=== PATIENT | female | born 1950 | race Hispanic/Latino ===

== ENCOUNTER 2019-12-19 03:11 | Inpatient (IN) | payer MEDICARE ==
--- NOTE | 2019-12-19 04:14 | XRay Report ---
CHEST 1 VIEW 12/19/2019 3:47 AM INDICATION / CLINICAL INFORMATION: SOB. COMPARISON: None available. FINDINGS: SUPPORT DEVICES: None. HEART / MEDIASTINUM: Cardiac silhouette is markedly enlarged. LUNGS / PLEURA: Mild interstitial prominence. No pneumothorax. ADDITIONAL FINDINGS: No significant additional findings. IMPRESSION: 1. Mild CHF Signer Name: Roberto Meza MD Signed: 12/19/2019 4:09 AM Workstation Name: [id number]
[2019-12-19 04:17] LABS: Basophils % (Auto) 0.6 % (0.0-1.8); Eosinophils # (Auto) 0.1 K/mm3 (0.0-0.4); Eosinophils % (Auto) 0.8 % (0.0-4.3); Hematocrit 32.9 % (30.3-42.9); Hemoglobin 10.4 gm/dl (10.1-14.3); Lymphocytes # (Auto) 1.7 K/mm3 (1.2-5.4); Lymphocytes % (Auto) 22.6 % (13.4-35.0); Mean Corpuscular HGB Conc 32 % (30-34); Mean Corpuscular Volume 86 fl (79-97); Platelet Count 175 K/mm3 (140-440)
[2019-12-19 04:28] LABS: INR 2.04 (0.87-1.13)
[2019-12-19 04:29] LABS: Partial Thromboplastin Time 32.9 Sec. (24.2-36.6)
[2019-12-19] MEDS ORDERED: dilTIAZem 25 MG/5 ML INJ IV ONE ×2 (04:37→05:36)
[2019-12-19] MEDS ORDERED: dilTIAZem 25 MG/5 ML INJ ONE (04:37)
[2019-12-19 04:40] LABS: Albumin 3.5 g/dL (3.9-5)
[2019-12-19] MEDS ORDERED: POTASSIUM CHLORIDE ER 20 MEQ TAB PO ONE (05:35)
--- NOTE | 2019-12-19 06:11 | Emergency Department Report ---
HPI - General Chief Complaint: Dyspnea/Respdistress Time Seen by Provider: 12/19/19 03:23 - HPI HPI: This is a 69-year-old female who presents to the emergency department via EMS from home with a complaint of a one-week history of progressively worsening shortness of breath and lower extremity swelling. The patient has a history of congestive heart failure, COPD, coronary artery disease, hypertension and atrial fibrillation. The patient says that she has been doubling up on her Lasix and taking a total of 160 mg/day but still is having the edema and some orthopnea. Patient's primary care physician and monomer recovery supervisor are through [facility]. She denies any fever, cough, chest pain but does complain of some nausea with vomiting. No recent travel or sick contacts at home. No known exposure to anyone with Covid 19. ED Past Medical Hx - Past Medical History Previous Medical History?: Yes Hx Hypertension: Yes Hx Heart Attack/AMI: Yes (EF 15%) Hx Congestive Heart Failure: Yes Hx Renal Disease: Yes Hx COPD: Yes Additional medical history: A-fib, Bipap - Surgical History Past Surgical History?: Yes Additional Surgical History: Tubal Ligation - Social History Smoking Status: Never Smoker Substance Use Type: None - Medications Home Medications: Home Medications Medication Instructions Recorded Confirmed Last Taken Type AtorvaSTATin 40 mg PO DAILY 12/19/19 12/19/19 Unknown History Eliquis 5 mg PO BID 12/19/19 12/19/19 Unknown History Esomeprazole Magnesium 20 mg PO QAM 12/19/19 12/19/19 Unknown History Furosemide 80 mg PO BID 12/19/19 12/19/19 Unknown History Potassium 20 meq PO DAILY 12/19/19 12/19/19 Unknown History ED Review of Systems ROS: Stated complaint: URBAN Other details as noted in HPI Comment: All other systems reviewed and negative Constitutional: denies: chills, fever Eyes: denies: eye pain, vision change ENT: denies: ear pain, throat pain Respiratory: orthopnea, shortness of breath, SOB with exertion Cardiovascular: edema. denies: chest pain Gastrointestinal: nausea, vomiting. denies: abdominal pain Genitourinary: denies: dysuria, discharge Musculoskeletal: denies: back pain, arthralgia Skin: denies: rash, lesions Neurological: denies: headache, weakness Physical Exam - Physical Exam Vital Signs: Vital Signs 12/19/19 12/19/19 12/19/19 03:21 03:30 03:46 Temperature Pulse Rate 143 H 134 H 144 H Respiratory 32 H 29 H 22 Rate Blood Pressure 111/81 111/81 106/69 O2 Sat by Pulse 97 98 98 Oximetry 12/19/19 12/19/19 12/19/19 03:50 04:11 04:16 Temperature 98 F Pulse Rate 136 H 147 H 143 H Respiratory 26 H 22 25 H Rate Blood Pressure 106/69 104/74 O2 Sat by Pulse 99 98 97 Oximetry 12/19/19 12/19/19 12/19/19 04:30 04:46 05:00 Temperature Pulse Rate 144 H 138 H 121 H Respiratory 22 18 18 Rate Blood Pressure 105/81 102/67 114/72 O2 Sat by Pulse 96 96 Oximetry 12/19/19 12/19/19 12/19/19 05:16 05:30 05:55 Temperature Pulse Rate 136 H 129 H 136 H Respiratory 21 22 Rate Blood Pressure 97/72 102/73 105/76 O2 Sat by Pulse 96 100 Oximetry Physical Exam: GENERAL: The patient is well-developed well-nourished. HENT: Normocephalic. Atraumatic. Patient has moist mucous membranes. EYES: Extraocular motions are intact. NECK: Supple. Trachea is midline. CHEST/LUNGS: Coarse breath sounds throughout the chest. There is some tachypnea but no accessory muscle use. HEART/CARDIOVASCULAR: Irregular with moderate tachycardia. ABDOMEN: Abdomen is soft, nontender. Patient has normal bowel sounds. Obese habitus. SKIN: Skin is warm and dry. 2+ pitting edema to the bilateral lower extremities from the knees distally. NEURO: The patient is awake, alert, and oriented. The patient is cooperative. The patient has no focal neurologic deficits. Normal speech. MUSCULOSKELETAL: There is no tenderness or deformity. ED Course Vital Signs 12/19/19 12/19/19 12/19/19 03:21 03:30 03:46 Temperature Pulse Rate 143 H 134 H 144 H Respiratory 32 H 29 H 22 Rate Blood Pressure 111/81 111/81 106/69 O2 Sat by Pulse 97 98 98 Oximetry 12/19/19 12/19/19 12/19/19 03:50 04:11 04:16 Temperature 98 F Pulse Rate 136 H 147 H 143 H Respiratory 26 H 22 25 H Rate Blood Pressure 106/69 104/74 O2 Sat by Pulse 99 98 97 Oximetry 12/19/19 12/19/19 12/19/19 04:30 04:46 05:00 Temperature Pulse Rate 144 H 138 H 121 H Respiratory 22 18 18 Rate Blood Pressure 105/81 102/67 114/72 O2 Sat by Pulse 96 96 Oximetry 12/19/19 12/19/19 12/19/19 05:16 05:30 05:55 Temperature Pulse Rate 136 H 129 H 136 H Respiratory 21 22 Rate Blood Pressure 97/72 102/73 105/76 O2 Sat by Pulse 96 100 Oximetry ED Medical Decision Making - Lab Data Result diagrams: 12/19/19 03:48 12/19/19 03:48 - EKG Data -: EKG Interpreted by Me - EKG Data Interpretation: other (Atrial fibrillation with a rate of 137 bpm, prolonged QTC, left axis deviation, IVCD) - Radiology Data Radiology results: image reviewed interpreted by me: Chest x-ray shows some pulmonary vascular congestion and cardiomegaly. No obvious pneumonia. - Medical Decision Making This patient presents to the emergency department with a one-week history of shortness of breath, lower extremity edema. The patient does have a history of CHF, COPD, atrial fibrillation, given this current pandemic the patient was placed and patient isolation and on droplet precautions as a person under investigation for Covid 19. I wore a surgical hat, goggles, gown, double gloves, surgical mask and N95 mask with each encounter. Patient does present in atrial fibrillation with RVR. On examination she has slightly coarse breath sounds with some tachypnea but no accessory muscle use. She has pitting edema to the bilateral lower extremities. Chest x-ray shows some pulmonary vascular congestion and cardiomegaly but no obvious pneumonia. Patient has been given 2 different doses of Cardizem with some improvement in the tachycardia but she remains in atrial fibrillation. Patient's labs show renal failure with a creatinine of 1.5 and a GFR of 34, elevated inflammatory markers such as d- dimer/CRP/LDH, transaminitis and an elevated bilirubin level. The patient will be admitted to the hospital for further evaluation and treatment and was accepted for admission by the hospitalist, Dr Kwan, who may pass the admission to the AM hospitalist team. Critical Care Time: Yes Critical care time in (mins) excluding proc time.: 35 Critical care attestation.: If time is entered above; I have spent that time in minutes in the direct care of this critically ill patient, excluding procedure time. Critical care time was spent on this patient in doing her initial evaluation, multiple re- evaluations, ordering and interpretation of labs and imaging, chronotropic medication for the patient's A. fib with RVR, multiple discussions with the patient and discussion with hospitalist service. Critical Care Time: 35 minutes ED Disposition Clinical Impression: Atrial fibrillation with RVR, Suspected 2019 novel coronavirus infection, Transaminitis CHF exacerbation Qualifiers: Heart failure type: unspecified Qualified Code(s): I50.9 - Heart failure, unspecified Acute renal failure Qualifiers: Acute renal failure type: unspecified Qualified Code(s): N17.9 - Acute kidney failure, unspecified Disposition: 09 OP ADMIT IP TO THIS HOSP Is pt being admited?: Yes Condition: Serious Time of Disposition: 06:14
--- NOTE | 2019-12-19 11:16 | History and Physical Report ---
History of Present Illness Date of examination: 12/19/19 Date of admission: 12/19/19 06:14 Chief complaint: atrial fib History of present illness: This is a 69-year-old female with a history of congestive heart failure, COPD, coronary artery disease, hypertension and atrial fibrillation who presents to the emergency department via EMS from home with a complaint of a one-week history of progressively worsening shortness of breath and extensive lower extremity swelling. Patient was recently discharged from the [facility] about less than 2 weeks ago. the patient says that she has been doubling up on her Lasix and taking a total of 160 mg/day but still is having the leg edema and some orthopnea. She denies any fever, cough, chest pain but does complain of some nausea with vomiting. No recent travel or sick contacts at home. In the ER her BMP showed potassium 3.1, creatinine 1.5, BNP 5175 and troponin 0 0.017. Patient has been placed on COVID-19 protocol, given one-time dose of Lasix and call for admission for further evaluation management. Past Medical Hx - Past Medical History Previous Medical History?: Yes Hx Hypertension: Yes Hx Congestive Heart Failure: Yes (grade 3 diastolic dysfunction with EF 15% on 10/2019) Hx Renal Disease: Yes, CKD Hx COPD: Yes Additional medical history: A-fib, obstructive sleep apnea on CPAP - Surgical History Past Surgical History?: Yes Additional Surgical History: Tubal Ligation - Social History Smoking Status: Never Smoker Substance Use Type: None - Family history Significant for heart disease Review of Systems Comment: All other systems reviewed and negative Constitutional: denies: chills, fever Eyes: denies: eye pain, vision change ENT: denies: ear pain, throat pain Respiratory: orthopnea, shortness of breath, SOB with exertion Cardiovascular: edema. denies: chest pain Gastrointestinal: nausea, vomiting. denies: abdominal pain Genitourinary: denies: dysuria, discharge Musculoskeletal: denies: back pain, arthralgia Skin: denies: rash, lesions Neurological: denies: headache, weakness Medications and Allergies Allergies Allergy/AdvReac Type Severity Reaction Status Date / Time No Known Allergies Allergy Unverified 12/19/19 03:45 Home Medications Medication Instructions Recorded Confirmed Last Taken Type AtorvaSTATin 40 mg PO DAILY 12/19/19 12/19/19 Unknown History Eliquis 5 mg PO BID 12/19/19 12/19/19 Unknown History Esomeprazole Magnesium 20 mg PO QAM 12/19/19 12/19/19 Unknown History Furosemide 80 mg PO BID 12/19/19 12/19/19 Unknown History Potassium 20 meq PO DAILY 12/19/19 12/19/19 Unknown History Exam - Physical Exam Narrative exam: GENERAL: The patient is well-developed morbidly obese. HENT: Normocephalic. Atraumatic. Patient has moist mucous membranes. Positive JVD EYES: Extraocular motions are intact. NECK: Supple. Trachea is midline. CHEST/LUNGS: Coarse breath sounds throughout the chest. There is some tachypnea but no accessory muscle use. HEART/CARDIOVASCULAR: Irregular with moderate tachycardia. ABDOMEN: Abdomen is soft, nontender. Patient has normal bowel sounds. Obese habitus. SKIN: Skin is warm and dry. 3+ pitting edema to the bilateral lower extremities from the knees distally. NEURO: The patient is awake, alert, and oriented. The patient is cooperative. The patient has no focal neurologic deficits. Normal speech. MUSCULOSKELETAL: There is no tenderness or deformity. - Constitutional Vitals: Temp Pulse Resp BP Pulse Ox 98 F 119 H 27 H 95/62 96 12/19/19 03:50 12/19/19 08:46 12/19/19 08:46 12/19/19 08:46 12/19/19 08:46 HEART Score - HEART Score Troponin: Troponin T 0.017 ng/mL (0.00-0.029) 12/19/19 03:48 Results - Labs CBC & Chem 7: 12/19/19 03:48 12/21/19 04:49 Labs: Abnormal lab results 12/19/19 12/19/19 12/19/19 Range/Units 03:48 03:48 03:48 MCH 27 L (28-32) pg RDW 20.0 H (13.2-15.2) % Whitfield % (Auto) 13.0 H (0.0-7.3) % Whitfield # 1.0 H (0.0-0.8) K/mm3 PT 22.5 H (12.2-14.9) Sec. INR 2.04 H (0.87-1.13) D-Dimer 1849.34 H (0-234) ng/mlDDU Potassium 3.1 L (3.6-5.0) mmol/L Chloride 93.0 L (98-107) mmol/L BUN 23 H (7-17) mg/dL Creatinine 1.5 H (0.7-1.2) mg/dL Glucose 136 H (65-100) mg/dL Total Bilirubin 2.60 H (0.1-1.2) mg/dL AST 166 H (5-40) units/L ALT 252 H (7-56) units/L Lactate Dehydrogenase (91-180) units/L C-Reactive Protein (0.00-1.30) mg/dL NT-Pro-B Natriuret Pep (0-900) pg/mL Albumin 3.5 L (3.9-5) g/dL 12/19/19 Range/Units 03:48 MCH (28-32) pg RDW (13.2-15.2) % Whitfield % (Auto) (0.0-7.3) % Whitfield # (0.0-0.8) K/mm3 PT (12.2-14.9) Sec. INR (0.87-1.13) D-Dimer (0-234) ng/mlDDU Potassium (3.6-5.0) mmol/L Chloride (98-107) mmol/L BUN (7-17) mg/dL Creatinine (0.7-1.2) mg/dL Glucose 143 H (65-100) mg/dL Total Bilirubin (0.1-1.2) mg/dL AST (5-40) units/L ALT (7-56) units/L Lactate Dehydrogenase 334 H (91-180) units/L C-Reactive Protein 4.00 H (0.00-1.30) mg/dL NT-Pro-B Natriuret Pep 5175 H (0-900) pg/mL Albumin (3.9-5) g/dL - Imaging and Cardiology Chest x-ray: report reviewed (Interstitial prominence with CHF) Assessment and Plan Acute on chronic combined systolic and diastolic CHF -EF 15% with grade 3 diastolic dysfunction on echo 10/2019 -- admit to telemetry bed - monitor with serial CE and EKG - will place on Aspirin, statin, and Lasix IV - Consult cardiology - cardiac diet now, daily weights, monitor in's and O's Suspected COVID-19 -Test has ordered, follow inflammatory markers -If positive will consult ID Atrial flutter with RVR -Anticoagulation with Eliquis 5 mg p.o. twice daily -Continue rate control with Toprol-XL and amiodarone -Follow cardiology recommendation Hypertension, continue home meds -Monitor vitals every 8 hour, adjust antihypertensive as needed Obstructive sleep apnea, CPAP at bedtime Hyperlipidemia, continue Lipitor 40 mg daily CKD stage 3 - her baseline Cr 1.4 to 1.5 - cont to monitor bmp hypokalemia, replete and check Mg Morbid obesity, dietary recommendation when clinically stable - provide DVT Px with lovenox
[2019-12-19] MEDS: ACETAMINOPHEN 325 MG TAB PO PRN (16:09)
[2019-12-19] MEDS: FUROSEMIDE 40 MG/4 ML INJ IV SCH (17:59)
[2019-12-19] MEDS ORDERED: NON-FORMULARY EACH (Eliquis 5 MG) PO SCH (22:00)
[2019-12-19] MEDS: AMIODARONE 200 MG TAB PO SCH (22:28)
[2019-12-19] MEDS: METOPROLOL TARTRATE 25 MG TAB PO SCH (22:28)
[2019-12-19] MEDS: APIXABAN 5 MG TAB PO SCH (22:28)
[2019-12-20] MEDS: ACETAMINOPHEN 325 MG TAB PO PRN
[2019-12-20] MEDS: FUROSEMIDE 40 MG/4 ML INJ IV SCH ×2 (05:53→18:12)
[2019-12-20] MEDS: POTASSIUM CHLORIDE ER 20 MEQ TAB PO SCH (09:38)
[2019-12-20] MEDS: AMIODARONE 200 MG TAB PO SCH ×2 (09:38→22:35)
[2019-12-20] MEDS: APIXABAN 5 MG TAB PO SCH ×2 (09:38→22:36)
[2019-12-20] MEDS: PANTOPRAZOLE 20 MG TAB PO SCH (09:38)
[2019-12-20] MEDS: ASPIRIN 81 MG TAB CHEW PO SCH (09:38)
[2019-12-20] MEDS: METOPROLOL TARTRATE 25 MG TAB PO SCH ×2 (09:39→22:36)
[2019-12-20] MEDS ORDERED: POTASSIUM 20 MEQ PO SCH (10:00)
[2019-12-20] MEDS ORDERED: NON-FORMULARY EACH (Atorvastatin 40 MG) PO SCH (10:00)
[2019-12-20] MEDS ORDERED: NON-FORMULARY EACH (Esomeprazole Magnesium 20 MG) PO SCH (10:00)
--- NOTE | 2019-12-20 10:05 | Consultation ---
History of Present Illness Consult date: 12/20/19 Consult reason: congestive heart failure History of present illness: This is a 69-year-old obese female who is presenting with a one-week history of progressive pedal edema and shortness of breath. She was recently discharged from [facility] where she goes for her cardiac care. She denied any chest pain or palpitations. Past History Past Medical History: diabetes, heart failure, hypertension, renal failure Past Surgical History: No surgical history Medications and Allergies Allergies Allergy/AdvReac Type Severity Reaction Status Date / Time No Known Allergies Allergy Unverified 12/19/19 03:45 Home Medications Medication Instructions Recorded Confirmed Last Taken Type AtorvaSTATin 40 mg PO DAILY 12/19/19 12/19/19 Unknown History Eliquis 5 mg PO BID 12/19/19 12/19/19 Unknown History Esomeprazole Magnesium 20 mg PO QAM 12/19/19 12/19/19 Unknown History Furosemide 80 mg PO BID 12/19/19 12/19/19 Unknown History Potassium 20 meq PO DAILY 12/19/19 12/19/19 Unknown History Active Meds: Active Medications Acetaminophen (Tylenol) 650 mg PO Q4H PRN PRN Reason: Pain MILD(1-3)/Fever >100.5/LÓPEZ Last Admin: 12/20/19 00:00 Dose: 650 mg Documented by: Amiodarone HCl (Cordarone) 200 mg PO BID COUNT INCLUDES THE [facility] Last Admin: 12/20/19 09:38 Dose: 200 mg Documented by: Apixaban (Eliquis) 5 mg PO Q12HR COUNT INCLUDES THE [facility] Last Admin: 12/20/19 09:38 Dose: 5 mg Documented by: Aspirin (Baby Aspirin) 81 mg PO QDAY COUNT INCLUDES THE [facility] Last Admin: 12/20/19 09:38 Dose: 81 mg Documented by: Atorvastatin Calcium (Lipitor) 40 mg PO QHS COUNT INCLUDES THE [facility] Last Admin: 12/19/19 22:28 Dose: 40 mg Documented by: Furosemide (Lasix) 80 mg IV 0600,1800 COUNT INCLUDES THE [facility] Last Admin: 12/20/19 05:53 Dose: Not Given Documented by: Metoprolol Tartrate (Metoprolol) 25 mg PO BID COUNT INCLUDES THE [facility] Last Admin: 12/20/19 09:39 Dose: Not Given Documented by: Pantoprazole Sodium (Protonix) 20 mg PO QDAY COUNT INCLUDES THE [facility] Last Admin: 12/20/19 09:38 Dose: 20 mg Documented by: Potassium Chloride (K-Dur) 20 meq PO QDAY LIZETH Last Admin: 12/20/19 09:38 Dose: 20 meq Documented by: Review of Systems Constitutional: weight gain Ears, nose, mouth and throat: no deferred, no ear pain, no ear discharge Cardiovascular: edema, shortness of breath, no chest pain, no orthopnea Respiratory: no excessive sputum, no congestion Gastrointestinal: no nausea, no vomiting, no diarrhea Genitourinary Female: no pelvic pain, no flank pain, no dysuria Menstruation: no currently menstrual, no premenarcheal Rectal: no pain, no bleeding Musculoskeletal: no neck stiffness, no neck pain, no shooting arm pain Integumentary: no rash, no pruritis, no redness Neurological: no head injury, no transient paralysis, no paralysis, no weakness, no parathesias, no numbness Psychiatric: no anxiety, no memory loss, no change in sleep habits, no sleep disturbances, no insomnia Endocrine: no cold intolerance, no polyphagia, no polydipsia, no polyuria, no nocturia Hematologic/Lymphatic: no easy bruising, no easy bleeding Allergic/Immunologic: no urticaria, no allergic rhinitis, no wheezing Physical Examination Vital Signs Pulse Resp BP Pulse Ox 143 H 32 H 111/81 97 12/19/19 03:21 12/19/19 03:21 12/19/19 03:21 12/19/19 03:21 General appearance: no acute distress, obese HEENT: Positive: PERRL, Normocephaly, Mucus Membranes Moist Neck: Positive: neck supple, trachea midline Cardiac: Positive: Irregularly Regular, S1/S2, S3, PMI, Dilated, Laterally Displaced Lungs: Positive: clear to auscultation, No Wheeze, Rales, Rhonchi Neuro: Positive: Grossly Intact, Negative Rhomberg Abdomen: Positive: Soft Extremities: Present: +2 Edema Results 12/19/19 03:48 12/19/19 03:48 Assessment and Plan 1. Acute decompensated chronic combined systolic and diastolic heart failure. 2. Dilated cardiomyopathy 3. Type 2 diabetes mellitus 4. Essential hypertension 5. Hyperlipidemia 6. Obesity 7. Atrial fibrillation with a controlled ventricular response 8. Chronic renal disease Plan. Patient is currently stable we will obtain records from [facility] continue diuresing and present medication. CHF education.
[2019-12-20] MEDS ORDERED: ONDANSETRON 4 MG/2 ML INJ IV ONE (17:18)
--- NOTE | 2019-12-20 21:11 | Progress Note ---
Assessment and Plan Acute on chronic combined systolic and diastolic CHF -EF 15% with grade 3 diastolic dysfunction on echo 10/2019 - follow telemetry bed - monitored with serial CE and EKG - cont on Aspirin, statin, and Lasix IV - Consulted cardiology - cardiac diet now, daily weights, monitor in's and O's Suspected COVID-19- negative test Atrial flutter with RVR -Anticoagulation with Eliquis 5 mg p.o. twice daily -Continue rate control with Toprol-XL and amiodarone -Follow cardiology recommendation Hypertension, continue home meds -Monitor vitals every 8 hour, adjust antihypertensive as needed Obstructive sleep apnea, CPAP at bedtime Hyperlipidemia, continue Lipitor 40 mg daily CKD stage 3 - her baseline Cr 1.4 to 1.5 - cont to monitor bmp hypokalemia, repleted and normal Mg Morbid obesity, dietary recommendation when clinically stable - provide DVT Px with lovenox 12/20/19: covid negative. patient still symptomatic with b/l LE edema. cont iv lasix, monitor daily wt/ins/os, follow vitals daily Subjective Date of service: 12/20/19 Interval history: Patient seen and examined. Medical records and medication list reviewed. No acute event overnight noted by the RN. Continue to complains of difficulty breathing even on resting and still has extensive lower extremity swelling. Patient is tolerating diet. SBP slightly low today Discussed plan of care at bedside with patient. Objective - Constitutional Vitals: Vital Signs - 12hr 12/20/19 12/20/19 12/20/19 09:39 09:40 10:00 Temperature Pulse Rate 105 H 100 H Respiratory Rate Blood Pressure 89/56 92/65 O2 Sat by Pulse 98 99 96 Oximetry 12/20/19 12/20/19 12/20/19 13:00 13:44 17:32 Temperature 97.4 F L 97.6 F Pulse Rate 103 H 88 Respiratory 22 22 27 H Rate Blood Pressure 95/69 99/78 O2 Sat by Pulse 98 97 98 Oximetry - Labs CBC & Chem 7: 12/19/19 03:48 12/21/19 04:49 Labs: Abnormal lab results 12/20/19 Range/Units 12:50 Sodium 136 L (137-145) mmol/L Chloride 91.6 L (98-107) mmol/L BUN 27 H (7-17) mg/dL Creatinine 1.6 H (0.7-1.2) mg/dL Glucose 114 H (65-100) mg/dL HEART Score - HEART Score Troponin: Troponin T 0.017 ng/mL (0.00-0.029) 12/19/19 03:48
[2019-12-20] MEDS: ONDANSETRON 4 MG/2 ML INJ IV PRN (22:33)
[2019-12-21] MEDS: FUROSEMIDE 40 MG/4 ML INJ IV SCH ×2 (05:28→18:35)
[2019-12-21 05:52] LABS: Calcium 9.1 mg/dL (8.4-10.2)
[2019-12-21] MEDS: AMIODARONE 200 MG TAB PO SCH ×2 (10:09→22:27)
[2019-12-21] MEDS: PANTOPRAZOLE 20 MG TAB PO SCH (10:10)
[2019-12-21] MEDS: POTASSIUM CHLORIDE ER 20 MEQ TAB PO SCH (10:10)
[2019-12-21] MEDS: ASPIRIN 81 MG TAB CHEW PO SCH (10:10)
[2019-12-21] MEDS: APIXABAN 5 MG TAB PO SCH ×2 (10:10→22:26)
[2019-12-21] MEDS: METOPROLOL TARTRATE 25 MG TAB PO SCH ×2 (10:13→22:26)
[2019-12-21] MEDS: ONDANSETRON 4 MG/2 ML INJ IV PRN (10:54)
[2019-12-21] MEDS ORDERED: METOCLOPRAMIDE 10 MG TAB PO PRN (14:26)
--- NOTE | 2019-12-21 17:06 | Progress Note ---
Assessment and Plan Acute on chronic combined systolic and diastolic CHF -EF 15% with grade 3 diastolic dysfunction on echo 10/2019 - follow telemetry bed - monitored with serial CE and EKG - cont on Aspirin, statin, and Lasix IV - Consulted cardiology - cardiac diet now, daily weights, monitor in's and O's Suspected COVID-19- negative test Atrial flutter with RVR -Anticoagulation with Eliquis 5 mg p.o. twice daily -Continue rate control with Toprol-XL and amiodarone -Follow cardiology recommendation Hypertension, continue home meds -Monitor vitals every 8 hour, adjust antihypertensive as needed Obstructive sleep apnea, CPAP at bedtime Hyperlipidemia, continue Lipitor 40 mg daily QAMAR on CKD stage 3 - her baseline Cr 1.4 to 1.5 -Creatinine increased to 1.9 today, cont to monitor bmp -Consult renal hypokalemia, repleted and normal Mg Morbid obesity, dietary recommendation when clinically stable - provide DVT Px with lovenox 12/20/19: covid negative. patient still symptomatic with b/l LE edema. cont iv lasix, monitor daily wt/ins/os, follow vitals daily 12/21/19: Continue IV Lasix, follow creatinine, consulted renal for QAMAR. Monitor Daily weights/ins/os Subjective Date of service: 12/21/19 Interval history: Patient seen and examined. Medical records and medication list reviewed. No acute event overnight noted by the RN. still has b/l LE swelling, covid 19 negative Discussed plan of care at bedside with patient. Objective - Exam Narrative Exam: GENERAL: The patient is well-developed morbidly obese. HENT: Normocephalic. Atraumatic. Patient has moist mucous membranes. Positive JVD EYES: Extraocular motions are intact. NECK: Supple. Trachea is midline. CHEST/LUNGS: Coarse breath sounds throughout the chest. There is some tachypnea but no accessory muscle use. HEART/CARDIOVASCULAR: Irregular with moderate tachycardia. ABDOMEN: Abdomen is soft, nontender. Patient has normal bowel sounds. Obese habitus. SKIN: Skin is warm and dry. 3+ pitting edema to the bilateral lower extremities from the knees distally. NEURO: The patient is awake, alert, and oriented. The patient is cooperative. The patient has no focal neurologic deficits. Normal speech. MUSCULOSKELETAL: There is no tenderness or deformity. - Constitutional Vitals: Vital Signs - 12hr 12/21/19 12/21/19 12/21/19 10:13 11:03 12:08 Temperature 97.4 F L Pulse Rate 130 H 129 H Respiratory 24 Rate Blood Pressure 98/71 96/78 O2 Sat by Pulse 98 97 Oximetry - Labs CBC & Chem 7: 12/23/19 03:39 12/29/19 04:43 Labs: Abnormal lab results 12/21/19 Range/Units 04:49 Chloride 90.7 L (98-107) mmol/L BUN 31 H (7-17) mg/dL Creatinine 1.9 H (0.7-1.2) mg/dL Glucose 116 H (65-100) mg/dL HEART Score - HEART Score Troponin: Troponin T 0.017 ng/mL (0.00-0.029) 12/19/19 03:48
--- NOTE | 2019-12-21 17:31 | Progress Note ---
Assessment and Plan - Patient Problems (1) Acute on chronic systolic heart failure Current Visit: Yes Status: Acute Plan to address problem: Continue guideline directed medical therapy, the patient is planned for transfer to telemetry. If she does not respond adequately to diuretics, we will commence a trial of intravenous milrinone therapy once she is on telemetry floor. (2) Chronic atrial fibrillation Current Visit: Yes Status: Acute Plan to address problem: Chronic atrial fibrillation on a rate control strategy and oral anticoagulation with Eliquis. Subjective Date of service: 12/21/19 Interval history: The patient is comfortable, no new cardiac complaints. She still has 2+ lower extremity edema. She gives history of longstanding dilated cardiomyopathy and chronic atrial fibrillation, for which she receives regular care at the [facility]. She states that her most recent left ventricular ejection fraction was 15%. She is on guideline directed medical therapy for chronic systolic left ventricular failure. She is on Eliquis for oral anticoagulation. She has been told by her primary outpatient retail sales representative that she may eventually meet criteria for ICD device therapy. EKG here is atrial fibrillation, with relatively well-controlled ventricular rate, and a nonspecific intraventricular conduction block. Objective Vital Signs Temp Pulse Resp BP Pulse Ox 12/21/19 13:00 22 97 12/21/19 12:08 97.4 F L 129 H 24 96/78 97 12/21/19 11:03 98 12/21/19 10:13 130 H 98/71 12/21/19 04:13 97.4 F L 109 H 20 104/80 98 12/20/19 20:03 106/77 12/20/19 17:32 97.6 F 88 27 H 99/78 98 - Physical Examination General: No Apparent Distress HEENT: Positive: PERRL, Normocephaly, Mucus Membranes Moist Neck: Positive: neck supple, trachea midline Cardiac: Positive: irregularly irregular Neuro: Positive: Grossly Intact, Negative Rhomberg Abdomen: Positive: Soft Extremities: Present: +2 Edema - Labs and Meds Comprehensive Metabolic Panel 12/21/19 Range/Units 04:49 Sodium 137 (137-145) mmol/L Potassium 3.9 (3.6-5.0) mmol/L Chloride 90.7 L (98-107) mmol/L Carbon Dioxide 30 (22-30) mmol/L BUN 31 H (7-17) mg/dL Creatinine 1.9 H (0.7-1.2) mg/dL Glucose 116 H (65-100) mg/dL Calcium 9.1 (8.4-10.2) mg/dL
--- NOTE | 2019-12-21 20:32 | Consultation ---
History of Present Illness - Reason for Consult Consult date: 12/21/19 acute renal failure, chronic renal failure - History of Present Illness The patient is a 69 YO female with history significant for HTN, HLD, Morbid obesity, CAD, CHF, COPD and Atrial fibrillation who presented to [facility] ED 12/18 via EMS from home with complaint of 2 weeks history of progressively worsening shortness of breath and lower extremity swelling. Patient was recently discharged from the [facility] about 2 weeks ago after a month long stay. She was also treated for kidney problem. Per patient the Lasix dose has been doubled to a total of 160 mg/day but the leg edema and sob is not improving. Patient admits N, V, decreased appetite, poor PO intake and dysuria. She denies any fever, chills, cough, chest pain, hematuria, dizziness or syncope. No recent travel or sick contacts at home. In the ER her BMP showed Creatinine 1.9 and BUN 31. Her BP has been running low. Patient was admitted with CHF ex acerbation and to r/o COVID-19 infection. Nephrology was consulted for further evaluation and treatment. Past History Past Medical History: diabetes, heart failure, hypertension, renal failure Past Surgical History: No surgical history Medications and Allergies Allergies Allergy/AdvReac Type Severity Reaction Status Date / Time No Known Allergies Allergy Unverified 12/19/19 03:45 Home Medications Medication Instructions Recorded Confirmed Last Taken Type AtorvaSTATin 40 mg PO DAILY 12/19/19 12/19/19 Unknown History Eliquis 5 mg PO BID 12/19/19 12/19/19 Unknown History Esomeprazole Magnesium 20 mg PO QAM 12/19/19 12/19/19 Unknown History Furosemide 80 mg PO BID 12/19/19 12/19/19 Unknown History Potassium 20 meq PO DAILY 12/19/19 12/19/19 Unknown History Active Meds: Active Medications Acetaminophen (Tylenol) 650 mg PO Q4H PRN PRN Reason: Pain MILD(1-3)/Fever >100.5/LÓPEZ Last Admin: 12/20/19 00:00 Dose: 650 mg Documented by: Amiodarone HCl (Cordarone) 200 mg PO BID [facility] Last Admin: 12/21/19 10:09 Dose: 200 mg Documented by: Apixaban (Eliquis) 5 mg PO Q12HR [facility] Last Admin: 12/21/19 10:10 Dose: 5 mg Documented by: Aspirin (Baby Aspirin) 81 mg PO QDAY [facility] Last Admin: 12/21/19 10:10 Dose: 81 mg Documented by: Atorvastatin Calcium (Lipitor) 40 mg PO QHS [facility] Last Admin: 12/20/19 22:36 Dose: Not Given Documented by: Furosemide (Lasix) 40 mg IV 0600,1800 [facility] Last Admin: 12/21/19 18:35 Dose: 40 mg Documented by: Metoclopramide HCl (Reglan) 10 mg PO Q6H PRN PRN Reason: Nausea And Vomiting Last Admin: 12/21/19 14:58 Dose: 10 mg Documented by: Metoprolol Tartrate (Metoprolol) 25 mg PO BID [facility] Last Admin: 12/21/19 10:13 Dose: Not Given Documented by: Ondansetron HCl (Zofran) 4 mg IV Q8H PRN PRN Reason: N/V unrelieved by Reglan Last Admin: 12/21/19 10:54 Dose: 4 mg Documented by: Pantoprazole Sodium (Protonix) 20 mg PO QDAY [facility] Last Admin: 12/21/19 10:10 Dose: 20 mg Documented by: Potassium Chloride (K-Dur) 20 meq PO QDAY [facility] Last Admin: 12/21/19 10:10 Dose: 20 meq Documented by: Review of Systems Constitutional: anorexia, poor appetite, no weight loss, no weight gain, no fever, no chills, no fatigue, no weakness Breasts: deferred Cardiovascular: orthopnea, edema, shortness of breath, dyspnea on exertion, paroxysmal nocturnal dyspnea, high blood pressure, leg edema, decreased exercise tolerance, no chest pain, no palpitations, no syncope, no lightheadedness Respiratory: shortness of breath, dyspnea on exertion, no cough, no hemoptysis Gastrointestinal: nausea, vomiting, no abdominal pain, no diarrhea, no melena Genitourinary Female: no dysuria, no hematuria Rectal: no bleeding Musculoskeletal: no muscle weakness Integumentary: no rash Neurological: no convulsions, no aphasia, no change in speech, no confusion Exam - Vital Signs Vital signs: Vital Signs Pulse Resp BP Pulse Ox 143 H 32 H 111/81 97 12/19/19 03:21 12/19/19 03:21 12/19/19 03:21 12/19/19 03:21 - General Appearance General appearance: well-developed, well-nourished, appears stated age, obese, other (no distress, sitting in the chair) EENT: ATNC, PERRL, mucous membranes moist, hearing intact, vision intact Neck: Present: neck supple, trachea midline Respiratory: Rales Heart: regular, S1S2, no murmurs Gastrointestinal: Present: normoactive bowel sounds, obese. Absent: tenderness Integumentary: no rash, warm and dry Neurologic: no focal deficit, no asterixis, alert and oriented x3 Musculoskeletal: Present: other (2+ LE edema noted) Results - Lab Results 12/19/19 03:48 12/21/19 04:49 Most recent lab results Calcium 9.1 mg/dL (8.4-10.2) 12/21/19 04:49 Magnesium 2.30 mg/dL (1.7-2.3) 12/20/19 12:50 - Image Kidney/bladder ultrasound: pending Assessment and Plan 1. Acute kidney injury: Vasomotor QAMRA superimposed on CKD stage 3 in the setting hypotension and decompensated CHF. Urine studies and Renal US ordered. Baseline renal function is unknown. Creatinine level continue to increase. Monitor renal function. Renal prognosis is guarded. Avoid nephrotoxic agents. Meds dosage based on GFR. 2. FEN: Hyperkalemia, replete K as needed, monitor. Volume overload, diuretics as needed. Monitor lytes and volume status. 3. Acute on chronic combined systolic and diastolic CHF: EF 15% with grade 3 diastolic dysfunction on echo 10/2019. Consulted Cardiology. 4. Suspected COVID-19: Test negative. 5. Atrial flutter with RVR: On Eliquis, Toprol-XL and Amiodarone. Followed by Cardiology. 6. Elevated LFTs: Monitor. 7. Obstructive sleep apnea: CPAP at bedtime.
[2019-12-21] MEDS: ACETAMINOPHEN 325 MG TAB PO PRN (23:48)
[2019-12-22 04:48] LABS: Bilirubin,Urine NEG (Negative); Blood,Urine NEG (Negative); Color,Urine Amber (Yellow); Hyaline Casts,Urine 22 /LPF; Mucus,Urine FEW /HPF
[2019-12-22 04:57] LABS: Creatinine,Urine 106.1 mg/dL (0.1-20.0)
[2019-12-22] MEDS: FUROSEMIDE 40 MG/4 ML INJ IV SCH ×2 (06:06→19:00)
[2019-12-22 06:22] LABS: Albumin 3.3 g/dL (3.9-5); Calcium 9.1 mg/dL (8.4-10.2)
[2019-12-22] MEDS: APIXABAN 5 MG TAB PO SCH ×2 (09:29→21:14)
[2019-12-22] MEDS: PANTOPRAZOLE 20 MG TAB PO SCH (09:29)
[2019-12-22] MEDS: POTASSIUM CHLORIDE ER 20 MEQ TAB PO SCH (09:29)
[2019-12-22] MEDS: ASPIRIN 81 MG TAB CHEW PO SCH (09:30)
--- NOTE | 2019-12-22 09:37 | Progress Note ---
Assessment and Plan 1. Acute kidney injury: Vasomotor QAMAR superimposed on CKD stage 3 in the setting hypotension and decompensated CHF. Renal US negative for hydro. Urine studies and ordered. Baseline renal function is unknown. Creatinine level is about the same as yesterday. Monitor renal function. Renal prognosis is guarded. Avoid nephrotoxic agents. Meds dosage based on GFR. 2. FEN: Hypokalemia, replete K as needed, monitor. Volume overload, on Lasix. Monitor lytes and volume status. 3. Acute on chronic combined systolic and diastolic CHF: EF 15% with grade 3 diastolic dysfunction on echo 10/2019. Followed by Cards. Limit fluid intake. 4. Suspected COVID-19: Test negative. 5. Chronic Atrial fib with RVR: On Eliquis, Toprol-XL and Amiodarone. Followed by Cardiology. 6. Elevated LFTs: Monitor. 7. Obstructive sleep apnea: CPAP at bedtime. - Subjective: Patient was seen and examined at the chairside. Continue to have orthopnea and bilateral leg swelling. - General Appearance General appearance: well-developed, well-nourished, appears stated age, obese, no distress, sitting in the chair HEENT: ATNC, MANJIT, mucous membranes moist, hearing intact, vision intact Neck: neck supple, trachea midline Respiratory: bibasal faint rales Heart: regular, S1S2, no murmurs Gastrointestinal: normoactive bowel sounds, obese, not tender Integumentary: no rash, warm and dry Neurologic: no focal deficit, no asterixis, alert and oriented x3 Ext: 2+ LE edema noted Subjective Date of service: 12/22/19 Objective - Vital Signs Vital signs: Vital Signs - 12hr 12/21/19 12/21/19 12/22/19 22:02 22:26 01:00 Temperature 97.3 F L Pulse Rate 132 H 136 H Pulse Rate [ 132 H Right Brachial] Respiratory 16 16 Rate Blood Pressure 97/71 107/75 O2 Sat by Pulse 97 97 Oximetry 12/22/19 12/22/19 04:32 09:31 Temperature 97.5 F L Pulse Rate 109 H Pulse Rate [ Right Brachial] Respiratory 16 20 Rate Blood Pressure 104/67 87/49 O2 Sat by Pulse 95 Oximetry - Lab 12/19/19 03:48 12/22/19 05:40 Most recent lab results Calcium 9.1 mg/dL (8.4-10.2) 12/22/19 05:40 Magnesium 2.30 mg/dL (1.7-2.3) 12/20/19 12:50 Urine Creatinine 106.1 mg/dL (0.1-20.0) H 12/21/19 Unknown Urine Sodium 10 mmol/L 12/21/19 Unknown Medications & Allergies - Medications Allergies/Adverse Reactions: Allergies No Known Allergies Allergy (Unverified 12/19/19 03:45) Home Medications: Home Medications Medication Instructions Recorded Confirmed Last Taken Type AtorvaSTATin 40 mg PO DAILY 12/19/19 12/19/19 Unknown History Eliquis 5 mg PO BID 12/19/19 12/19/19 Unknown History Esomeprazole Magnesium 20 mg PO QAM 12/19/19 12/19/19 Unknown History Furosemide 80 mg PO BID 12/19/19 12/19/19 Unknown History Potassium 20 meq PO DAILY 12/19/19 12/19/19 Unknown History Active Medications: Generic Name Dose Route Start Last Admin Trade Name Freq PRN Reason Stop Dose Admin Acetaminophen 650 mg 12/19/19 15:51 12/21/19 23:48 Tylenol PO 650 mg Q4H PRN Administration Pain MILD(1-3)/Fever >100.5/LÓPEZ Amiodarone HCl 200 mg 12/19/19 22:00 12/21/19 22:27 Cordarone PO 200 mg BID LIZETH Administration Apixaban 5 mg 12/19/19 22:00 12/22/19 09:29 Eliquis PO 5 mg Q12HR LIZETH Administration Aspirin 81 mg 12/20/19 10:00 12/22/19 09:30 Baby Aspirin PO 81 mg QDAY LIZETH Administration Atorvastatin Calcium 40 mg 12/19/19 22:00 12/21/19 22:26 Lipitor PO 40 mg QHS LIZETH Administration Furosemide 40 mg 12/20/19 21:09 12/22/19 06:06 Lasix IV 40 mg 0600,1800 LIZETH Administration Metoclopramide HCl 10 mg 12/21/19 14:26 12/21/19 14:58 Reglan PO 10 mg Q6H PRN Administration Nausea And Vomiting Metoprolol Tartrate 25 mg 12/19/19 22:00 12/21/19 22:26 Metoprolol PO 25 mg BID LIZETH Administration Ondansetron HCl 4 mg 12/20/19 21:09 12/21/19 10:54 Zofran IV 4 mg Q8H PRN Administration N/V unrelieved by Avelina Pantoprazole Sodium 20 mg 12/20/19 10:00 12/22/19 09:29 Protonix PO 20 mg QDAY LIZETH Administration Potassium Chloride 20 meq 12/20/19 10:00 12/22/19 09:29 K-Dur PO 20 meq QDAY LIZETH Administration
[2019-12-22] MEDS: AMIODARONE 200 MG TAB PO SCH ×2 (10:00→22:38)
[2019-12-22] MEDS: METOPROLOL TARTRATE 25 MG TAB PO SCH ×2 (10:00→22:38)
--- NOTE | 2019-12-22 10:26 | Progress Note ---
Assessment and Plan Congestive heart failure, acute on chronic Chronic atrial fibrillation on rate control strategy oral anticoagulation with Eliquis. Hx of dilated cardiomyopathy followed by Aurelio She states that her most recent left ventricular ejection fraction was 15%. Recommendations: Obtain an echocardiogram. We will consider a trial of intravenous milrinone therapy once she is on telemetry floor. Continue guideline directed medical therapy for chronic systolic left ventricular failure and Eliquis for oral anticoagulation. She has been told by her primary outpatient piccolo mechanic that she may eventually meet criteria for ICD device therapy. Subjective Date of service: 12/22/19 Interval history: Atrial fibrillation, rate in the low 100s on telemetry. Awaits transfer to telemetry. Objective Vital Signs Temp Pulse Pulse Resp BP Pulse Ox 12/22/19 09:31 20 87/49 12/22/19 04:32 97.5 F L 109 H 16 104/67 95 12/22/19 01:00 132 H 16 97 12/21/19 22:26 136 H 107/75 12/21/19 22:02 97.3 F L 132 H 16 97/71 97 12/21/19 17:02 97.5 F L 136 H 24 107/75 97 12/21/19 13:00 22 97 12/21/19 12:08 97.4 F L 129 H 24 96/78 97 12/21/19 11:03 98 - Labs and Meds Cardiac Enzymes 12/22/19 Range/Units 05:40 AST 236 H (5-40) units/L Comprehensive Metabolic Panel 12/22/19 Range/Units 05:40 Sodium 134 L (137-145) mmol/L Potassium 3.8 (3.6-5.0) mmol/L Chloride 90.2 L (98-107) mmol/L Carbon Dioxide 28 (22-30) mmol/L BUN 33 H (7-17) mg/dL Creatinine 2.0 H (0.7-1.2) mg/dL Glucose 112 H (65-100) mg/dL Calcium 9.1 (8.4-10.2) mg/dL AST 236 H (5-40) units/L ALT 228 H (7-56) units/L Alkaline Phosphatase 77 (35-129) units/L Total Protein 6.7 (6.3-8.2) g/dL Albumin 3.3 L (3.9-5) g/dL
--- NOTE | 2019-12-22 11:53 | Ultrasound Report ---
ULTRASOUND RENAL INDICATION / CLINICAL INFORMATION: Acute renal failure.. COMPARISON: None available. FINDINGS: RIGHT KIDNEY: Length = 10.1 cm. [normal > 9 cm] - Parenchymal Thickness = 1.5 cm. [normal > 1.5 cm] - Echogenicity: Slightly increased - Hydronephrosis: None. - Cyst or mass: No significant abnormality. - Stones: None seen. LEFT KIDNEY: Length = 10.5 cm. [normal > 9 cm] - Parenchymal Thickness = 1.3 cm. [normal > 1.5 cm] - Echogenicity: Widely increased - Hydronephrosis: None. - Cyst or mass: No significant abnormality. - Stones: None seen. URINARY BLADDER: No significant abnormality. FREE FLUID: Small ascites is noted in the pelvis. ADDITIONAL FINDINGS: None. IMPRESSION: Normal size but slightly echogenic kidneys consistent with nonspecific renal parenchymal disease. No obstructive uropathy. Small pelvic ascites. Signer Name: Alex Yuen Jr, MD Signed: 12/22/2019 11:49 AM Workstation Name: [id number]
--- NOTE | 2019-12-22 17:16 | Progress Note ---
Assessment and Plan Acute on chronic combined systolic and diastolic CHF -EF 15% with grade 3 diastolic dysfunction on echo 10/2019 - follow telemetry bed - monitored with serial CE and EKG - cont on Aspirin, statin, and Lasix IV - Consulted cardiology - cardiac diet now, daily weights, monitor in's and O's Suspected COVID-19- negative test Atrial flutter with RVR -Anticoagulation with Eliquis 5 mg p.o. twice daily -Continue rate control with Toprol-XL and amiodarone -Follow cardiology recommendation Hypertension, continue home meds -Monitor vitals every 8 hour, adjust antihypertensive as needed Obstructive sleep apnea, CPAP at bedtime Hyperlipidemia, continue Lipitor 40 mg daily QAMAR on CKD stage 3 - her baseline Cr 1.4 to 1.5 -Creatinine trending up, cont to monitor bmp -Consult renal hypokalemia, repleted and normal Mg Morbid obesity, dietary recommendation when clinically stable - provide DVT Px with lovenox 12/20/19: covid negative. patient still symptomatic with b/l LE edema. cont iv lasix, monitor daily wt/ins/os, follow vitals daily 12/21/19: Continue IV Lasix, follow creatinine, consulted renal for QAMAR. Monitor Daily weights/ins/os. cardiology planning to start milrinone drip when patient moves to telemetry floor 12/21: start on Milrinone drip today, discussed with Dr cruz, monitor bmp Subjective Date of service: 12/22/19 Interval history: Patient seen and examined. Medical records and medication list reviewed. No acute event overnight noted by the RN. still has b/l LE swelling, covid 19 negative Discussed plan of care at bedside with patient. Objective - Exam Narrative Exam: GENERAL: The patient is well-developed morbidly obese. HENT: Normocephalic. Atraumatic. Patient has moist mucous membranes. Positive JVD EYES: Extraocular motions are intact. NECK: Supple. Trachea is midline. CHEST/LUNGS: Coarse breath sounds throughout the chest. There is some tachypnea but no accessory muscle use. HEART/CARDIOVASCULAR: Irregular with moderate tachycardia. ABDOMEN: Abdomen is soft, nontender. Patient has normal bowel sounds. Obese habitus. SKIN: Skin is warm and dry. 3+ pitting edema to the bilateral lower extremities from the knees distally. NEURO: The patient is awake, alert, and oriented. The patient is cooperative. The patient has no focal neurologic deficits. Normal speech. MUSCULOSKELETAL: There is no tenderness or deformity. - Constitutional Vitals: Vital Signs - 12hr 12/22/19 12/22/19 09:31 10:00 Pulse Rate [ 132 H Right Brachial] Respiratory 20 16 Rate Blood Pressure 87/49 O2 Sat by Pulse 97 Oximetry - Labs CBC & Chem 7: 12/23/19 03:39 12/29/19 04:43 Labs: Abnormal lab results 12/21/19 12/22/19 Range/Units Unknown 05:40 Sodium 134 L (137-145) mmol/L Chloride 90.2 L (98-107) mmol/L BUN 33 H (7-17) mg/dL Creatinine 2.0 H (0.7-1.2) mg/dL Glucose 112 H (65-100) mg/dL Total Bilirubin 2.10 H (0.1-1.2) mg/dL AST 236 H (5-40) units/L ALT 228 H (7-56) units/L Albumin 3.3 L (3.9-5) g/dL Urine Creatinine 106.1 H (0.1-20.0) mg/dL HEART Score - HEART Score Troponin: Troponin T 0.017 ng/mL (0.00-0.029) 12/19/19 03:48
[2019-12-22] MEDS: MILRINONE-D5W 20 MG/100 ML 20 MG/100 ML BAG IV SCH (22:53)
[2019-12-23 04:50] LABS: Calcium 8.9 mg/dL (8.4-10.2)
[2019-12-23 04:52] LABS: Basophils % (Auto) 0.6 % (0.0-1.8); Eosinophils # (Auto) 0.1 K/mm3 (0.0-0.4); Eosinophils % (Auto) 1.5 % (0.0-4.3); Hematocrit 32.3 % (30.3-42.9); Hemoglobin 10.5 gm/dl (10.1-14.3); Lymphocytes # (Auto) 1.4 K/mm3 (1.2-5.4); Lymphocytes % (Auto) 22.4 % (13.4-35.0); Mean Corpuscular HGB Conc 32 % (30-34); Mean Corpuscular Volume 86 fl (79-97); Monocytes # (Auto) 0.8 K/mm3 (0.0-0.8); Monocytes % (Auto) 12.1 % (0.0-7.3); Platelet Count 189 K/mm3 (140-440); Red Blood Count 3.76 M/mm3 (3.65-5.03)
[2019-12-23] MEDS: FUROSEMIDE 40 MG/4 ML INJ IV SCH ×2 (06:51→17:21)
--- NOTE | 2019-12-23 08:35 | Progress Note ---
Assessment and Plan 1. Acute kidney injury: Vasomotor QAMAR superimposed on CKD stage 3 in the setting hypotension and decompensated CHF. UA bland. Renal US negative for hydro. Creatinine level is about the same as yesterday. Monitor renal function. Renal prognosis is guarded. Avoid nephrotoxic agents. Meds dosage based on GFR. 2. FEN: Hypokalemia, replete K as needed, monitor. Volume overload, on Lasix. Monitor lytes and volume status. 3. Acute on chronic combined systolic and diastolic CHF: EF 15% with grade 3 diastolic dysfunction on echo 10/2019. Followed by Cards. Limit fluid intake. 4. Suspected COVID-19: Test negative. 5. Chronic Atrial fib with RVR: On Eliquis, Toprol-XL and Amiodarone. Followed by Cardiology. 6. Elevated LFTs: Monitor. 7. Obstructive sleep apnea: CPAP at bedtime. - Subjective: Patient was seen and examined at the chairside. Continue to have orthopnea and bilateral leg swelling. - General Appearance General appearance: well-developed, well-nourished, appears stated age, obese, no distress, sitting in the chair HEENT: ATNC, MANJIT, mucous membranes moist, hearing intact, vision intact Neck: neck supple, trachea midline Respiratory: ctab Heart: S1S2, no murmurs Gastrointestinal: normoactive bowel sounds, obese, not tender Integumentary: no rash, warm and dry Neurologic: no focal deficit, no asterixis, alert and oriented x3 Ext: 2+ LE edema noted Subjective Date of service: 12/23/19 Objective - Vital Signs Vital signs: Vital Signs - 12hr 12/22/19 12/22/19 12/22/19 20:53 20:55 21:28 Temperature 96.5 F L 96.5 F L Pulse Rate 121 H 127 H Pulse Rate [ 127 H Right Brachial] Respiratory 20 20 20 Rate Blood Pressure Blood Pressure 93/70 95/74 [Left] O2 Sat by Pulse 99 97 100 Oximetry 12/22/19 12/22/19 12/23/19 22:38 22:58 00:35 Temperature Pulse Rate 127 H 124 H Pulse Rate [ Right Brachial] Respiratory 18 Rate Blood Pressure 95/74 Blood Pressure [Left] O2 Sat by Pulse Oximetry 12/23/19 01:22 Temperature 96.7 F L Pulse Rate 122 H Pulse Rate [ Right Brachial] Respiratory 22 Rate Blood Pressure Blood Pressure 100/69 [Left] O2 Sat by Pulse 100 Oximetry - Lab 12/23/19 03:39 12/23/19 03:39 Most recent lab results Calcium 8.9 mg/dL (8.4-10.2) 12/23/19 03:39 Magnesium 2.30 mg/dL (1.7-2.3) 12/20/19 12:50 Urine Creatinine 106.1 mg/dL (0.1-20.0) H 12/21/19 Unknown Urine Sodium 10 mmol/L 12/21/19 Unknown Medications & Allergies - Medications Allergies/Adverse Reactions: Allergies No Known Allergies Allergy (Unverified 12/19/19 03:45) Home Medications: Home Medications Medication Instructions Recorded Confirmed Last Taken Type AtorvaSTATin 40 mg PO DAILY 12/19/19 12/19/19 Unknown History Eliquis 5 mg PO BID 12/19/19 12/19/19 Unknown History Esomeprazole Magnesium 20 mg PO QAM 12/19/19 12/19/19 Unknown History Furosemide 80 mg PO BID 12/19/19 12/19/19 Unknown History Potassium 20 meq PO DAILY 12/19/19 12/19/19 Unknown History Active Medications: Generic Name Dose Route Start Last Admin Trade Name Freq PRN Reason Stop Dose Admin Acetaminophen 650 mg 12/19/19 15:51 12/21/19 23:48 Tylenol PO 650 mg Q4H PRN Administration Pain MILD(1-3)/Fever >100.5/LÓPEZ Amiodarone HCl 200 mg 12/19/19 22:00 12/22/19 22:38 Cordarone PO 200 mg BID LIZETH Administration Apixaban 5 mg 12/19/19 22:00 12/22/19 21:14 Eliquis PO 5 mg Q12HR LIZETH Administration Aspirin 81 mg 12/20/19 10:00 12/22/19 09:30 Baby Aspirin PO 81 mg QDAY LIZETH Administration Atorvastatin Calcium 40 mg 12/19/19 22:00 12/22/19 21:14 Lipitor PO 40 mg QHS LIZETH Administration Furosemide 40 mg 12/20/19 21:09 12/23/19 06:51 Lasix IV Not Given 0600,1800 [facility] Milrinone Lactate/Dextrose 20 mg in 100 mls @ 14.288 mls/hr 12/22/19 17:00 12/22/19 22:53 Milrinone-D5w 20 Mg/100 Ml IV 0.1 mcg/kg/min TITR LIZETH 3.81 mls/hr Administration Protocol 0.375 MCG/KG/MIN Metoclopramide HCl 10 mg 12/21/19 14:26 12/21/19 14:58 Reglan PO 10 mg Q6H PRN Administration Nausea And Vomiting Metoprolol Tartrate 25 mg 12/19/19 22:00 12/22/19 22:38 Metoprolol PO Not Given BID LIZETH Ondansetron HCl 4 mg 12/20/19 21:09 12/21/19 10:54 Zofran IV 4 mg Q8H PRN Administration N/V unrelieved by Avelina Pantoprazole Sodium 20 mg 12/20/19 10:00 12/22/19 09:29 Protonix PO 20 mg QDAY LIZETH Administration Potassium Chloride 20 meq 12/20/19 10:00 12/22/19 09:29 K-Dur PO 20 meq QDAY LIZETH Administration
--- NOTE | 2019-12-23 11:24 | Progress Note ---
Assessment and Plan Congestive heart failure, acute on chronic Chronic atrial fibrillation on rate control strategy oral anticoagulation with Eliquis. Hx of dilated cardiomyopathy followed by Aurelio She states that her most recent left ventricular ejection fraction was 15%. Recommendations: Advised sodium/fluid restriction. Continue aggressive medical therapy for chronic systolic left ventricular failure including a trial of IV milrinone. Eliquis for oral anticoagulation. We will arrange for a Lifevest to be placed as bridge therapy to eventual ICD. Subjective Date of service: 12/23/19 Interval history: Patient has been started on IV milrinone. Admits she is diuresing well. Objective Vital Signs Temp Pulse Pulse Resp BP BP Pulse Ox 12/23/19 10:10 97 12/23/19 01:22 96.7 F L 122 H 22 100/69 100 12/23/19 00:35 18 12/22/19 22:58 124 H 12/22/19 22:38 127 H 95/74 12/22/19 21:28 127 H 20 100 12/22/19 20:55 96.5 F L 127 H 20 95/74 97 12/22/19 20:53 96.5 F L 121 H 20 93/70 99 12/22/19 19:56 114 H 12/22/19 16:23 97.4 F L 119 H 18 96/71 98 - Physical Examination General: No Apparent Distress, Other (obese) HEENT: Positive: PERRL Neck: Positive: neck supple Cardiac: Positive: irregularly irregular Lungs: Positive: Decreased Breath Sounds Neuro: Positive: Grossly Intact Abdomen: Positive: Soft Extremities: Present: +2 Edema - Labs and Meds CBC 12/23/19 Range/Units 03:39 WBC 6.4 (4.5-11.0) K/mm3 RBC 3.76 (3.65-5.03) M/mm3 Hgb 10.5 (10.1-14.3) gm/dl Hct 32.3 (30.3-42.9) % Plt Count 189 (140-440) K/mm3 Lymph # 1.4 (1.2-5.4) K/mm3 Beauregard # 0.8 (0.0-0.8) K/mm3 Eos # 0.1 (0.0-0.4) K/mm3 Baso # 0.0 (0.0-0.1) K/mm3 Comprehensive Metabolic Panel 12/23/19 Range/Units 03:39 Sodium 136 L (137-145) mmol/L Potassium 3.9 (3.6-5.0) mmol/L Chloride 92.2 L (98-107) mmol/L Carbon Dioxide 28 (22-30) mmol/L BUN 35 H (7-17) mg/dL Creatinine 2.0 H (0.7-1.2) mg/dL Glucose 120 H (65-100) mg/dL Calcium 8.9 (8.4-10.2) mg/dL
[2019-12-23] MEDS ORDERED: METOPROLOL TARTRATE 5 MG/5 ML INJ IV PRN (11:30)
--- NOTE | 2019-12-23 14:33 | Progress Note ---
Assessment and Plan Acute on chronic combined systolic and diastolic CHF -EF 10-15% with grade 3 diastolic dysfunction on echo 10/2019 - follow telemetry bed - monitored with serial CE and EKG - cont on Aspirin, statin, and Lasix IV - Consulted cardiology, on milrinone drip - cardiac diet now, daily weights, monitor in's and O's Suspected COVID-19- negative test Atrial flutter with RVR -Anticoagulation with Eliquis 5 mg p.o. twice daily -Continue rate control with Toprol-XL and amiodarone -Follow cardiology recommendation Hypertension, continue home meds -Monitor vitals every 8 hour, adjust antihypertensive as needed Obstructive sleep apnea, CPAP at bedtime Hyperlipidemia, continue Lipitor 40 mg daily QAMAR on CKD stage 3 - her baseline Cr 1.4 to 1.5 -Creatinine trending up, cont to monitor bmp -Consult renal hypokalemia, repleted and normal Mg Morbid obesity, dietary recommendation when clinically stable - provide DVT Px with lovenox 12/20/19: covid negative. patient still symptomatic with b/l LE edema. cont iv lasix, monitor daily wt/ins/os, follow vitals daily 12/21/19: Continue IV Lasix, follow creatinine, consulted renal for QAMAR. Monitor Daily weights/ins/os. cardiology planning to start milrinone drip when patient moves to telemetry floor 12/21: start on Milrinone drip today, discussed with Dr cruz, monitor bmp. ordered for repEAT 2D ECHO 12/22: patient is on intravenous milrinone, Left ventricular ejection fraction w as estimated at <10% ON ECHO THIS ADMISSION. nEED a LifeVest on discharge as a bridge to eventual ICD implant. Subjective Date of service: 12/23/19 Interval history: Patient seen and examined. Medical records and medication list reviewed. No acute event overnight noted by the RN. breathing slightly improved, still has b/l LE swelling Discussed plan of care at bedside with patient. Objective - Exam Narrative Exam: GENERAL: The patient is well-developed morbidly obese. HENT: Normocephalic. Atraumatic. Patient has moist mucous membranes. Positive JVD EYES: Extraocular motions are intact. NECK: Supple. Trachea is midline. CHEST/LUNGS: Coarse breath sounds throughout the chest. There is some tachypnea but no accessory muscle use. HEART/CARDIOVASCULAR: Irregular with moderate tachycardia. ABDOMEN: Abdomen is soft, nontender. Patient has normal bowel sounds. Obese habitus. SKIN: Skin is warm and dry. 3+ pitting edema to the bilateral lower extremities from the knees distally. NEURO: The patient is awake, alert, and oriented. The patient is cooperative. The patient has no focal neurologic deficits. Normal speech. MUSCULOSKELETAL: There is no tenderness or deformity. - Constitutional Vitals: Vital Signs - 12hr 12/23/19 10:10 O2 Sat by Pulse 97 Oximetry - Labs CBC & Chem 7: 12/23/19 03:39 12/24/19 03:45 Labs: Abnormal lab results 12/23/19 12/23/19 Range/Units 03:39 03:39 RDW 20.0 H (13.2-15.2) % Walton % (Auto) 12.1 H (0.0-7.3) % Sodium 136 L (137-145) mmol/L Chloride 92.2 L (98-107) mmol/L BUN 35 H (7-17) mg/dL Creatinine 2.0 H (0.7-1.2) mg/dL Glucose 120 H (65-100) mg/dL HEART Score - HEART Score Troponin: Troponin T 0.017 ng/mL (0.00-0.029) 12/19/19 03:48
[2019-12-23] MEDS: METOPROLOL TARTRATE 25 MG TAB PO SCH (15:23)
[2019-12-23] MEDS: APIXABAN 5 MG TAB PO SCH ×2 (15:23→21:00)
[2019-12-23] MEDS: ASPIRIN 81 MG TAB CHEW PO SCH (15:23)
[2019-12-23] MEDS: POTASSIUM CHLORIDE ER 20 MEQ TAB PO SCH (15:23)
[2019-12-23] MEDS: PANTOPRAZOLE 20 MG TAB PO SCH (15:23)
[2019-12-23] MEDS: AMIODARONE 200 MG TAB PO SCH ×2 (15:23→21:00)
[2019-12-23] MEDS: MILRINONE-D5W 20 MG/100 ML 20 MG/100 ML BAG IV SCH (17:21)
[2019-12-24] MEDS: METOPROLOL TARTRATE 25 MG TAB PO SCH ×3 (00:23→21:45)
[2019-12-24 04:39] LABS: Calcium 9.1 mg/dL (8.4-10.2)
[2019-12-24] MEDS: FUROSEMIDE 40 MG/4 ML INJ IV SCH ×2 (06:40→17:56)
--- NOTE | 2019-12-24 08:32 | Progress Note ---
Assessment and Plan 1. Acute kidney injury: Vasomotor QAMAR superimposed on CKD stage 3 in the setting hypotension and decompensated CHF. UA bland. Renal US negative for hydro. Creatinine leveled off. Monitor renal function. Renal prognosis is guarded. Avoid nephrotoxic agents. Meds dosage based on GFR. 2. FEN: Hypokalemia, replete K as needed, monitor. Volume overload, on Lasix. Monitor lytes and volume status. 3. Acute on chronic combined systolic and diastolic CHF: Milrinone drip. Followed by Cards. Limit fluid intake. 4. Suspected COVID-19: Test negative. 5. Chronic Atrial fib with RVR: On Eliquis, Toprol-XL, Digoxin and Amiodarone. Followed by Cardiology. 6. Elevated LFTs: Monitor. 7. Obstructive sleep apnea: CPAP at bedtime. - Subjective: Patient was seen and examined at the chairside. No new complaint. - General Appearance General appearance: well-developed, well-nourished, appears stated age, obese, no distress, sitting in the chair HEENT: ATNC, MANJIT, mucous membranes moist, hearing intact, vision intact Neck: neck supple, trachea midline Respiratory: ctab Heart: S1S2, no murmurs Gastrointestinal: normoactive bowel sounds, obese, not tender Integumentary: no rash, warm and dry Neurologic: no focal deficit, no asterixis, alert and oriented x3 Ext: 2+ LE edema noted Subjective Date of service: 12/24/19 Objective - Vital Signs Vital signs: Vital Signs - 12hr 12/23/19 12/23/19 12/23/19 22:00 23:12 23:30 Temperature 98.3 F Pulse Rate 113 H Pulse Rate [ 127 H Right Brachial] Respiratory 20 20 Rate Blood Pressure Blood Pressure 99/53 [Left] O2 Sat by Pulse 97 95 97 Oximetry 12/24/19 12/24/19 12/24/19 06:18 07:56 08:13 Temperature 97.1 F L 97.6 F Pulse Rate 76 117 H Pulse Rate [ Right Brachial] Respiratory 16 18 Rate Blood Pressure 112/66 114/66 Blood Pressure [Left] O2 Sat by Pulse 91 98 98 Oximetry - Lab 12/23/19 03:39 12/24/19 03:45 Most recent lab results Calcium 9.1 mg/dL (8.4-10.2) 12/24/19 03:45 Magnesium 2.30 mg/dL (1.7-2.3) 12/20/19 12:50 Urine Creatinine 106.1 mg/dL (0.1-20.0) H 12/21/19 Unknown Urine Sodium 10 mmol/L 12/21/19 Unknown Medications & Allergies - Medications Allergies/Adverse Reactions: Allergies No Known Allergies Allergy (Unverified 12/19/19 03:45) Home Medications: Home Medications Medication Instructions Recorded Confirmed Last Taken Type AtorvaSTATin 40 mg PO DAILY 12/19/19 12/19/19 Unknown History Eliquis 5 mg PO BID 12/19/19 12/19/19 Unknown History Esomeprazole Magnesium 20 mg PO QAM 12/19/19 12/19/19 Unknown History Furosemide 80 mg PO BID 12/19/19 12/19/19 Unknown History Potassium 20 meq PO DAILY 12/19/19 12/19/19 Unknown History Active Medications: Generic Name Dose Route Start Last Admin Trade Name Freq PRN Reason Stop Dose Admin Acetaminophen 650 mg 12/19/19 15:51 12/21/19 23:48 Tylenol PO 650 mg Q4H PRN Administration Pain MILD(1-3)/Fever >100.5/LÓPEZ Amiodarone HCl 200 mg 12/19/19 22:00 12/23/19 21:00 Cordarone PO 200 mg BID LIZETH Administration Apixaban 5 mg 12/19/19 22:00 12/23/19 21:00 Eliquis PO 5 mg Q12HR LIZETH Administration Aspirin 81 mg 12/20/19 10:00 12/23/19 15:23 Baby Aspirin PO 81 mg QDAY LIZETH Administration Atorvastatin Calcium 40 mg 12/19/19 22:00 12/23/19 21:00 Lipitor PO 40 mg QHS LIZETH Administration Furosemide 40 mg 12/20/19 21:09 12/24/19 06:40 Lasix IV 40 mg 0600,1800 LIZETH Administration Milrinone Lactate/Dextrose 20 mg in 100 mls @ 14.288 mls/hr 12/22/19 17:00 12/23/19 17:21 Milrinone-D5w 20 Mg/100 Ml IV 0.1 mcg/kg/min TITR LIZETH 3.81 mls/hr Administration Protocol 0.375 MCG/KG/MIN Metoclopramide HCl 10 mg 12/21/19 14:26 12/21/19 14:58 Reglan PO 10 mg Q6H PRN Administration Nausea And Vomiting Metoprolol Tartrate 25 mg 12/19/19 22:00 12/24/19 00:23 Metoprolol PO Not Given BID LIZETH Metoprolol Tartrate 2.5 mg 12/23/19 11:30 Metoprolol IV Q4HR PRN HR >130 Ondansetron HCl 4 mg 12/20/19 21:09 12/21/19 10:54 Zofran IV 4 mg Q8H PRN Administration N/V unrelieved by Avelina Pantoprazole Sodium 20 mg 12/20/19 10:00 12/23/19 15:23 Protonix PO 20 mg QDAY LIZETH Administration Potassium Chloride 20 meq 12/20/19 10:00 12/23/19 15:23 K-Dur PO 20 meq QDAY LIZETH Administration
[2019-12-24] MEDS: ASPIRIN 81 MG TAB CHEW PO SCH (09:51)
[2019-12-24] MEDS: AMIODARONE 200 MG TAB PO SCH ×2 (09:52→21:45)
[2019-12-24] MEDS: POTASSIUM CHLORIDE ER 20 MEQ TAB PO SCH (09:52)
[2019-12-24] MEDS: PANTOPRAZOLE 20 MG TAB PO SCH (09:52)
[2019-12-24] MEDS: APIXABAN 5 MG TAB PO SCH ×2 (09:52→21:45)
--- NOTE | 2019-12-24 10:44 | Progress Note ---
Assessment and Plan - Patient Problems (1) Acute on chronic systolic heart failure Current Visit: Yes Status: Acute Plan to address problem: Continue guideline directed medical therapy for chronic systolic left ventricular failure. Continue intravenous milrinone. (2) Chronic atrial fibrillation Current Visit: Yes Status: Acute Plan to address problem: Chronic atrial fibrillation on a rate control strategy and oral anticoagulation with Eliquis. I will add digitalis for atrial fibrillation rate control, dosed appropriately for renal failure. Subjective Date of service: 12/24/19 Interval history: The patient is comfortable, no new cardiac complaints. She still has 2+ lower extremity edema. She gives history of longstanding dilated cardiomyopathy and chronic atrial fibrillation, for which she receives regular care at the [facility]. She states that her most recent left ventricular ejection fraction was 15%. She is on guideline directed medical therapy for chronic systolic left ventricular failure. She is on Eliquis for oral anticoagulation. She has been told by her primary outpatient residential treatment counselor that she may eventually meet criteria for ICD device therapy. EKG here is atrial fibrillation, with relatively well-controlled ventricular rate, and a nonspecific intraventricular conduction block. Objective Vital Signs Temp Pulse Pulse Resp BP BP Pulse Ox 12/24/19 09:51 116 H 114/60 12/24/19 08:32 20 97 12/24/19 08:13 98 12/24/19 07:56 97.6 F 117 H 18 114/66 98 12/24/19 06:18 97.1 F L 76 16 112/66 91 12/23/19 23:30 97 12/23/19 23:12 98.3 F 113 H 20 99/53 95 12/23/19 22:00 127 H 20 97 12/23/19 20:04 98.3 F 121 H 20 100/63 97 12/23/19 17:12 97.7 F 126 H 18 116/66 97 - Physical Examination General: No Apparent Distress, Other (obese) HEENT: Positive: PERRL Neck: Positive: neck supple Cardiac: Positive: irregularly irregular Lungs: Positive: Decreased Breath Sounds Neuro: Positive: Grossly Intact Abdomen: Positive: Soft Skin: Positive: Clear Extremities: Present: +2 Edema - Labs and Meds Comprehensive Metabolic Panel 12/24/19 Range/Units 03:45 Sodium 136 L (137-145) mmol/L Potassium 3.7 (3.6-5.0) mmol/L Chloride 91.5 L (98-107) mmol/L Carbon Dioxide 29 (22-30) mmol/L BUN 34 H (7-17) mg/dL Creatinine 1.9 H (0.7-1.2) mg/dL Glucose 121 H (65-100) mg/dL Calcium 9.1 (8.4-10.2) mg/dL
[2019-12-24] MEDS ORDERED: metOLazone 2.5 MG TAB PO SCH ×2 (11:00)
[2019-12-24] MEDS: SPIRONOLACTONE 25 MG TAB PO SCH (11:33)
[2019-12-24] MEDS: metOLazone 5 MG TAB PO SCH (12:06)
[2019-12-24] MEDS: ACETAMINOPHEN 325 MG TAB PO PRN (12:38)
[2019-12-24] MEDS: DIGOXIN 0.5 MG/2 ML INJ IV SCH ×2 (12:39→17:52)
--- NOTE | 2019-12-24 16:48 | Progress Note ---
Assessment and Plan - Patient Problems (1) Acute on chronic systolic heart failure Current Visit: Yes Status: Acute Plan to address problem: Acute on chronic systolic heart failure. Patient on milrinone. Beta-keith therapy diuretics. Doing well. May be to change patient to p.o. diuretics a.m. Appears to be stabilized. Last ejection fraction noted to be 15%. Anticipated discharge in a.m. (2) Acute renal failure Current Visit: Yes Status: Acute Qualifiers: Acute renal failure type: unspecified Qualified Code(s): N17.9 - Acute kidney failure, unspecified Plan to address problem: Acute renal failure on chronic kidney disease stage III. Stable considering diuretics and milrinone. No new changes at this time. Renal following. (3) Atrial fibrillation with RVR Current Visit: Yes Status: Acute Plan to address problem: A. fib patient rate controlled. Started on digitalis today. Eliquis for anticoagulation. (4) Suspected 2019 novel coronavirus infection Current Visit: Yes Status: Acute Plan to address problem: Ruled out for COVID-19 infection. Subjective Date of service: 12/24/19 Principal diagnosis: Acute decompensated congestive heart failure. Interval history: Patient appears improved today. Less work of breathing. Diuresing well. Saturations are improved. Clinically patient facies feels stronger. Objective - Constitutional Vitals: Vital Signs - 12hr 12/24/19 12/24/19 12/24/19 06:18 07:56 08:13 Temperature 97.1 F L 97.6 F Pulse Rate 76 117 H Respiratory 16 18 Rate Blood Pressure 112/66 114/66 O2 Sat by Pulse 91 98 98 Oximetry 12/24/19 12/24/19 12/24/19 08:32 09:51 11:27 Temperature 97.8 F Pulse Rate 116 H 112 H Respiratory 20 18 Rate Blood Pressure 114/60 95/59 O2 Sat by Pulse 97 98 Oximetry 12/24/19 12/24/19 12:15 12:39 Temperature Pulse Rate 115 H 115 H Respiratory Rate Blood Pressure 98/68 O2 Sat by Pulse Oximetry General appearance: Present: no acute distress, well-nourished - EENT Eyes: PERRL, EOM intact ENT: hearing intact, clear oral mucosa Ears: bilateral: normal - Neck Neck: supple, normal ROM - Respiratory Respiratory effort: normal Respiratory: bilateral: CTA, rhonchi (Bilateral bases.) - Breasts Breasts: normal - Cardiovascular Rhythm: regular Heart Sounds: Present: S1 & S2. Absent: gallop, rub Extremities: pulses intact, No edema, normal color, Full ROM - Gastrointestinal General gastrointestinal: Present: soft, non-tender, non-distended, normal bowel sounds - Genitourinary Female genitourinary: normal - Integumentary Integumentary: clear, warm, dry - Musculoskeletal Musculoskeletal: 1, strength equal bilaterally - Neurologic Neurologic: moves all extremities - Psychiatric Psychiatric: memory intact, appropriate mood/affect, intact judgment & insight - Labs CBC & Chem 7: 12/23/19 03:39 12/24/19 03:45 Labs: Abnormal lab results 12/24/19 Range/Units 03:45 Sodium 136 L (137-145) mmol/L Chloride 91.5 L (98-107) mmol/L BUN 34 H (7-17) mg/dL Creatinine 1.9 H (0.7-1.2) mg/dL Glucose 121 H (65-100) mg/dL HEART Score - HEART Score Troponin: Troponin T 0.017 ng/mL (0.00-0.029) 12/19/19 03:48
[2019-12-24] MEDS: MILRINONE-D5W 20 MG/100 ML 20 MG/100 ML BAG IV SCH (20:07)
[2019-12-25] MEDS: FUROSEMIDE 40 MG/4 ML INJ IV SCH ×2 (06:21→23:37)
[2019-12-25] MEDS ORDERED: POTASSIUM CHLORIDE ER 20 MEQ TAB PO NR (09:00)
[2019-12-25] MEDS: METOPROLOL TARTRATE 25 MG TAB PO SCH ×2 (09:57→21:24)
[2019-12-25] MEDS: APIXABAN 5 MG TAB PO SCH ×2 (09:57→21:24)
[2019-12-25] MEDS: PANTOPRAZOLE 20 MG TAB PO SCH (09:57)
[2019-12-25] MEDS: ASPIRIN 81 MG TAB CHEW PO SCH (09:57)
[2019-12-25] MEDS: metOLazone 5 MG TAB PO SCH (09:58)
[2019-12-25] MEDS: AMIODARONE 200 MG TAB PO SCH ×2 (09:58→21:24)
--- NOTE | 2019-12-25 11:16 | Progress Note ---
Assessment and Plan Congestive heart failure, acute on chronic Chronic atrial fibrillation on rate control strategy oral anticoagulation with Eliquis. Hx of dilated cardiomyopathy followed by Aurelio left ventricular ejection fraction 10-15% by echo this admission Renal failure Recommendations: Advised sodium/fluid restriction. Continue aggressive medical therapy for chronic systolic left ventricular failure. Eliquis for oral anticoagulation. We will arrange for a Lifevest to be placed as bridge therapy to eventual ICD. Subjective Date of service: 12/25/19 Principal diagnosis: Acute decompensated congestive heart failure. Interval history: IV milrinone continues. Admits she is diuresing well. Awaits lifevest to be placed. Afib with a well controlled ventricular rate on tele. Objective Vital Signs Temp Pulse Resp BP Pulse Ox 12/25/19 09:57 92 H 105/64 12/25/19 08:36 18 96 12/25/19 08:07 97.8 F 92 H 18 105/64 89 12/25/19 05:10 98.2 F 73 20 103/62 94 12/24/19 23:43 97.5 F L 89 16 95/51 100 12/24/19 22:54 97 12/24/19 22:00 92 H 18 97 12/24/19 19:49 36.0 F L 103 H 17 99/68 97 12/24/19 17:52 115 H 95/56 12/24/19 17:37 18 95/62 12/24/19 12:39 115 H 98/68 12/24/19 12:15 115 H 12/24/19 11:27 97.8 F 112 H 18 95/59 98 - Physical Examination General: No Apparent Distress, Other (obese) HEENT: Positive: PERRL Neck: Positive: trachea midline Cardiac: Positive: irregularly irregular Lungs: Positive: Decreased Breath Sounds Neuro: Positive: Grossly Intact Skin: Positive: Clear Extremities: Present: +2 Edema - Labs and Meds Comprehensive Metabolic Panel 12/25/19 Range/Units 03:42 Sodium 137 (137-145) mmol/L Potassium 3.4 L (3.6-5.0) mmol/L Chloride 92.3 L (98-107) mmol/L Carbon Dioxide 31 H (22-30) mmol/L BUN 32 H (7-17) mg/dL Creatinine 1.8 H (0.7-1.2) mg/dL Glucose 105 H (65-100) mg/dL Calcium 9.0 (8.4-10.2) mg/dL
[2019-12-25] MEDS: SPIRONOLACTONE 25 MG TAB PO SCH (11:50)
--- NOTE | 2019-12-25 12:54 | Progress Note ---
Assessment and Plan 1. Acute kidney injury: Vasomotor QAMAR superimposed on CKD stage 3 in the setting hypotension and decompensated CHF. UA bland. Renal US negative for hydro. Creatinine level is improving. Monitor renal function. Renal prognosis is guarded. Avoid nephrotoxic agents. Meds dosage based on GFR. 2. FEN: Hypokalemia, replete K as needed, monitor. Volume overload, on Lasix. Monitor lytes and volume status. 3. Acute on chronic combined systolic and diastolic CHF: Milrinone drip. Followed by Cards. Limit fluid intake. 4. Suspected COVID-19: Test negative. 5. Chronic Atrial fib with RVR: On Eliquis, Toprol-XL, Digoxin and Amiodarone. Followed by Cardiology. 6. Elevated LFTs: Monitor. 7. Obstructive sleep apnea: CPAP at bedtime. - Subjective: Patient was seen and examined at the bedside. No new complaint. - General Appearance General appearance: well-developed, well-nourished, appears stated age, obese, no distress HEENT: ATNC, MANJIT, mucous membranes moist, hearing intact, vision intact Neck: neck supple, trachea midline Respiratory: ctab Heart: S1S2, no murmur Gastrointestinal: normoactive bowel sounds, obese, not tender Integumentary: no rash, warm and dry Neurologic: no focal deficit, no asterixis, alert and oriented x3 Ext: 2+ LE edema noted Subjective Date of service: 12/25/19 Principal diagnosis: Acute decompensated congestive heart failure. Objective - Vital Signs Vital signs: Vital Signs - 12hr 12/25/19 12/25/19 12/25/19 05:10 08:07 08:36 Temperature 98.2 F 97.8 F Pulse Rate 73 92 H Respiratory 20 18 18 Rate Blood Pressure 103/62 105/64 Blood Pressure [Left] O2 Sat by Pulse 94 89 96 Oximetry 12/25/19 12/25/19 09:57 12:15 Temperature 97.9 F Pulse Rate 92 H 86 Respiratory 18 Rate Blood Pressure 105/64 Blood Pressure 110/64 [Left] O2 Sat by Pulse 96 Oximetry - Lab 12/23/19 03:39 12/25/19 03:42 Most recent lab results Calcium 9.0 mg/dL (8.4-10.2) 12/25/19 03:42 Magnesium 2.30 mg/dL (1.7-2.3) 12/20/19 12:50 Urine Creatinine 106.1 mg/dL (0.1-20.0) H 12/21/19 Unknown Urine Sodium 10 mmol/L 12/21/19 Unknown Medications & Allergies - Medications Allergies/Adverse Reactions: Allergies No Known Allergies Allergy (Unverified 12/19/19 03:45) Home Medications: Home Medications Medication Instructions Recorded Confirmed Last Taken Type AtorvaSTATin 40 mg PO DAILY 12/19/19 12/19/19 Unknown History Eliquis 5 mg PO BID 12/19/19 12/19/19 Unknown History Esomeprazole Magnesium 20 mg PO QAM 12/19/19 12/19/19 Unknown History Furosemide 80 mg PO BID 12/19/19 12/19/19 Unknown History Potassium 20 meq PO DAILY 12/19/19 12/19/19 Unknown History Active Medications: Generic Name Dose Route Start Last Admin Trade Name Freq PRN Reason Stop Dose Admin Acetaminophen 650 mg 12/19/19 15:51 12/24/19 12:38 Tylenol PO 650 mg Q4H PRN Administration Pain MILD(1-3)/Fever >100.5/LÓPEZ Amiodarone HCl 200 mg 12/19/19 22:00 12/25/19 09:58 Cordarone PO 200 mg BID LIZETH Administration Apixaban 5 mg 12/19/19 22:00 12/25/19 09:57 Eliquis PO 5 mg Q12HR LIZETH Administration Aspirin 81 mg 12/20/19 10:00 12/25/19 09:57 Baby Aspirin PO 81 mg QDAY LIZETH Administration Atorvastatin Calcium 40 mg 12/19/19 22:00 12/24/19 21:45 Lipitor PO 40 mg QHS LIZETH Administration Digoxin 0.125 mg 12/25/19 17:00 Lanoxin PO Q48H LIZETH Furosemide 40 mg 12/20/19 21:09 12/25/19 06:21 Lasix IV 40 mg 0600,1800 LIZETH Administration Milrinone Lactate/Dextrose 20 mg in 100 mls @ 14.288 mls/hr 12/22/19 17:00 12/24/19 20:07 Milrinone-D5w 20 Mg/100 Ml IV 0.1 mcg/kg/min TITR LIZETH 3.81 mls/hr Administration Protocol 0.375 MCG/KG/MIN Metoclopramide HCl 10 mg 12/21/19 14:26 12/21/19 14:58 Reglan PO 10 mg Q6H PRN Administration Nausea And Vomiting Metolazone 5 mg 12/24/19 11:00 12/25/19 09:58 Zaroxolyn PO 5 mg QDAY LIZETH Administration Metoprolol Tartrate 25 mg 12/19/19 22:00 12/25/19 09:57 Metoprolol PO 25 mg BID LIZETH Administration Metoprolol Tartrate 2.5 mg 12/23/19 11:30 Metoprolol IV Q4HR PRN HR >130 Ondansetron HCl 4 mg 12/20/19 21:09 12/21/19 10:54 Zofran IV 4 mg Q8H PRN Administration N/V unrelieved by Avelina Pantoprazole Sodium 20 mg 12/20/19 10:00 12/25/19 09:57 Protonix PO 20 mg QDAY LIZETH Administration Spironolactone 25 mg 12/24/19 11:00 12/25/19 11:50 Aldactone PO 25 mg QDAY LIZETH Administration
--- NOTE | 2019-12-25 16:13 | Progress Note ---
Assessment and Plan - Patient Problems (1) Acute on chronic systolic heart failure Current Visit: Yes Status: Acute Plan to address problem: Acute on chronic systolic heart failure. Patient on milrinone. Beta-keith therapy diuretics. Doing well. May be to change patient to p.o. diuretics a.m. Appears to be stabilized. Last ejection fraction noted to be 15%. Anticipated discharge with LifeVest and to be evaluated ICD. (2) Acute renal failure Current Visit: Yes Status: Acute Qualifiers: Acute renal failure type: unspecified Qualified Code(s): N17.9 - Acute kidney failure, unspecified Plan to address problem: Acute renal failure on chronic kidney disease stage III. Stable considering diuretics and milrinone. No new changes at this time. Renal following. (3) Atrial fibrillation with RVR Current Visit: Yes Status: Acute Plan to address problem: At present has optimal control of rate heart rate. Continue present medical management beta-keith AV justyn blocking agent. Anticoagulation. (4) Suspected 2019 novel coronavirus infection Current Visit: Yes Status: Acute Plan to address problem: Ruled out for COVID-19 infection. Subjective Date of service: 12/25/19 Principal diagnosis: Acute decompensated congestive heart failure. Interval history: Patient appears improved today. Less work of breathing. Diuresing well. Saturations are improved. Clinically patient facies feels stronger. Patient improving we will were known. Awaiting LifeVest. Objective - Constitutional Vitals: Vital Signs - 12hr 12/25/19 12/25/19 12/25/19 05:10 08:07 08:36 Temperature 98.2 F 97.8 F Pulse Rate 73 92 H Respiratory 20 18 18 Rate Blood Pressure 103/62 105/64 Blood Pressure [Left] O2 Sat by Pulse 94 89 96 Oximetry 12/25/19 12/25/19 12/25/19 09:57 10:00 12:15 Temperature 97.9 F Pulse Rate 92 H 86 Respiratory 18 Rate Blood Pressure 105/64 Blood Pressure 110/64 [Left] O2 Sat by Pulse 97 96 Oximetry General appearance: Present: no acute distress, well-nourished - EENT Eyes: PERRL, EOM intact ENT: hearing intact, clear oral mucosa Ears: bilateral: normal - Neck Neck: supple, normal ROM - Respiratory Respiratory effort: normal Respiratory: bilateral: CTA, rhonchi (Very few) - Breasts Breasts: normal - Cardiovascular Rhythm: regular Heart Sounds: Present: S1 & S2. Absent: gallop, rub Extremities: pulses intact, No edema, normal color, Full ROM - Gastrointestinal General gastrointestinal: Present: soft, non-tender, non-distended, normal bowel sounds - Genitourinary Female genitourinary: normal - Integumentary Integumentary: clear, warm, dry - Musculoskeletal Musculoskeletal: 1, strength equal bilaterally - Neurologic Neurologic: moves all extremities - Psychiatric Psychiatric: memory intact, appropriate mood/affect, intact judgment & insight - Labs CBC & Chem 7: 12/23/19 03:39 12/25/19 03:42 Labs: Abnormal lab results 12/25/19 Range/Units 03:42 Potassium 3.4 L (3.6-5.0) mmol/L Chloride 92.3 L (98-107) mmol/L Carbon Dioxide 31 H (22-30) mmol/L BUN 32 H (7-17) mg/dL Creatinine 1.8 H (0.7-1.2) mg/dL Glucose 105 H (65-100) mg/dL HEART Score - HEART Score Troponin: Troponin T 0.017 ng/mL (0.00-0.029) 12/19/19 03:48
[2019-12-25] MEDS: DIGOXIN 0.125 MG TAB PO SCH (18:24)
[2019-12-25] MEDS: MILRINONE-D5W 20 MG/100 ML 20 MG/100 ML BAG IV SCH (23:38)
[2019-12-26] MEDS: FUROSEMIDE 40 MG/4 ML INJ IV SCH ×2 (05:21→17:19)
[2019-12-26] MEDS: SPIRONOLACTONE 25 MG TAB PO SCH (09:09)
[2019-12-26] MEDS: PANTOPRAZOLE 20 MG TAB PO SCH (09:09)
[2019-12-26] MEDS: APIXABAN 5 MG TAB PO SCH ×2 (09:09→21:15)
[2019-12-26] MEDS: metOLazone 5 MG TAB PO SCH (09:09)
[2019-12-26] MEDS: AMIODARONE 200 MG TAB PO SCH ×2 (09:09→21:15)
[2019-12-26] MEDS: ASPIRIN 81 MG TAB CHEW PO SCH (09:09)
[2019-12-26] MEDS: METOPROLOL TARTRATE 25 MG TAB PO SCH ×2 (09:10→21:15)
--- NOTE | 2019-12-26 09:18 | Progress Note ---
Assessment and Plan Congestive heart failure, acute on chronic Chronic atrial fibrillation on rate control strategy oral anticoagulation with Eliquis. Hx of dilated cardiomyopathy followed by Aurelio left ventricular ejection fraction 10-15% by echo this admission Renal failure Recommendations: Advised sodium/fluid restriction. Continue aggressive medical therapy for chronic systolic left ventricular failure. Continue IV milrinone as patient is still volume overloaded Eliquis for oral anticoagulation. We will arrange for a Lifevest to be placed as bridge therapy to eventual ICD upon discharge. Subjective Date of service: 12/26/19 Principal diagnosis: Acute decompensated congestive heart failure. Interval history: Patient is stable and seems to be diuresing pretty well Tele is showing rate controlled afib Objective Vital Signs Temp Pulse Resp BP BP Pulse Ox 12/26/19 09:10 101 H 122/59 12/26/19 09:09 101 H 122/59 12/26/19 08:04 101 H 122/59 98 12/26/19 04:52 97.9 F 78 20 124/67 98 12/25/19 22:00 70 12/25/19 20:52 97.5 F L 93 H 20 107/62 100 12/25/19 20:00 18 95 12/25/19 19:39 97 12/25/19 16:17 97.9 F 94 H 18 101/66 100 12/25/19 12:15 97.9 F 86 18 110/64 96 12/25/19 10:00 97 12/25/19 09:57 92 H 105/64 - Physical Examination General: No Apparent Distress, Other (obese) HEENT: Positive: PERRL Neck: Positive: trachea midline Cardiac: Positive: irregularly irregular Neuro: Positive: Grossly Intact Abdomen: Positive: Soft Skin: Positive: Clear Extremities: Present: +2 Edema
--- NOTE | 2019-12-26 12:29 | Progress Note ---
Assessment and Plan 1. Acute kidney injury: Vasomotor QAMAR superimposed on CKD stage 3 in the setting hypotension and decompensated CHF. UA bland. Renal US negative for hydro. Creatinine level is improving. Monitor renal function. Renal prognosis is guarded. Avoid nephrotoxic agents. Meds dosage based on GFR. 2. FEN: Hypokalemia, replete K as needed, monitor. Volume overload, on Lasix and Metolazone. Monitor lytes and volume status. 3. Acute on chronic combined systolic and diastolic CHF: Milrinone drip. Followed by Cards. Limit fluid intake. 4. Suspected COVID-19: Test negative. 5. Chronic Atrial fib with RVR: On Eliquis, Toprol-XL, Digoxin and Amiodarone. Followed by Cardiology. 6. Elevated LFTs: Monitor. 7. Obstructive sleep apnea: CPAP at bedtime. - Subjective: Patient was seen and examined at the bedside. No new complaint. - General Appearance General appearance: well-developed, well-nourished, appears stated age, obese, no distress HEENT: ATNC, MANJIT, mucous membranes moist, hearing intact, vision intact Neck: neck supple, trachea midline Respiratory: ctab Heart: S1S2, no murmur Gastrointestinal: normoactive bowel sounds, obese, not tender Integumentary: no rash, warm and dry Neurologic: no focal deficit, no asterixis, alert and oriented x3 Ext: 2+ LE edema noted Subjective Date of service: 12/26/19 Principal diagnosis: Acute decompensated congestive heart failure. Objective - Vital Signs Vital signs: Vital Signs - 12hr 12/26/19 12/26/19 12/26/19 04:52 08:04 09:09 Temperature 97.9 F Pulse Rate 78 101 H 101 H Respiratory 20 Rate Blood Pressure 124/67 122/59 122/59 O2 Sat by Pulse 98 98 Oximetry 12/26/19 12/26/19 09:10 11:43 Temperature 98.6 F Pulse Rate 101 H 79 Respiratory 20 Rate Blood Pressure 122/59 106/68 O2 Sat by Pulse 98 Oximetry - Lab 12/23/19 03:39 12/25/19 03:42 Most recent lab results Calcium 9.0 mg/dL (8.4-10.2) 12/25/19 03:42 Magnesium 2.30 mg/dL (1.7-2.3) 12/20/19 12:50 Urine Creatinine 106.1 mg/dL (0.1-20.0) H 12/21/19 Unknown Urine Sodium 10 mmol/L 12/21/19 Unknown Medications & Allergies - Medications Allergies/Adverse Reactions: Allergies No Known Allergies Allergy (Unverified 12/19/19 03:45) Home Medications: Home Medications Medication Instructions Recorded Confirmed Last Taken Type AtorvaSTATin 40 mg PO DAILY 12/19/19 12/19/19 Unknown History Eliquis 5 mg PO BID 12/19/19 12/19/19 Unknown History Esomeprazole Magnesium 20 mg PO QAM 12/19/19 12/19/19 Unknown History Furosemide 80 mg PO BID 12/19/19 12/19/19 Unknown History Potassium 20 meq PO DAILY 12/19/19 12/19/19 Unknown History Active Medications: Generic Name Dose Route Start Last Admin Trade Name Freq PRN Reason Stop Dose Admin Acetaminophen 650 mg 12/19/19 15:51 12/24/19 12:38 Tylenol PO 650 mg Q4H PRN Administration Pain MILD(1-3)/Fever >100.5/LÓPEZ Amiodarone HCl 200 mg 12/19/19 22:00 12/26/19 09:09 Cordarone PO 200 mg BID LIZETH Administration Apixaban 5 mg 12/19/19 22:00 12/26/19 09:09 Eliquis PO 5 mg Q12HR LIZETH Administration Aspirin 81 mg 12/20/19 10:00 12/26/19 09:09 Baby Aspirin PO 81 mg QDAY LIZETH Administration Digoxin 0.125 mg 12/25/19 17:00 12/25/19 18:24 Lanoxin PO 0.125 mg Q48H LIZETH Administration Furosemide 40 mg 12/20/19 21:09 12/26/19 05:21 Lasix IV 40 mg 0600,1800 LIZETH Administration Milrinone Lactate/Dextrose 20 mg in 100 mls @ 14.288 mls/hr 12/22/19 17:00 12/25/19 23:38 Milrinone-D5w 20 Mg/100 Ml IV 0.1 mcg/kg/min TITR LIZETH 3.81 mls/hr Administration Protocol 0.375 MCG/KG/MIN Metoclopramide HCl 10 mg 12/21/19 14:26 12/21/19 14:58 Reglan PO 10 mg Q6H PRN Administration Nausea And Vomiting Metolazone 5 mg 12/24/19 11:00 12/26/19 09:09 Zaroxolyn PO 5 mg QDAY LIZETH Administration Metoprolol Tartrate 25 mg 12/19/19 22:00 12/26/19 09:10 Metoprolol PO 25 mg BID LIZETH Administration Metoprolol Tartrate 2.5 mg 12/23/19 11:30 Metoprolol IV Q4HR PRN HR >130 Ondansetron HCl 4 mg 12/20/19 21:09 12/21/19 10:54 Zofran IV 4 mg Q8H PRN Administration N/V unrelieved by Avelina Pantoprazole Sodium 20 mg 12/20/19 10:00 12/26/19 09:09 Protonix PO 20 mg QDAY LIZETH Administration Spironolactone 25 mg 12/24/19 11:00 12/26/19 09:09 Aldactone PO 25 mg QDAY LIZTEH Administration
--- NOTE | 2019-12-26 15:25 | Progress Note ---
Assessment and Plan - Patient Problems (1) Acute on chronic systolic heart failure Current Visit: Yes Status: Acute Plan to address problem: Acute on chronic systolic heart failure. Patient on milrinone. Beta-keith therapy diuretics. Doing well. May be to change patient to p.o. diuretics a.m. Appears to be stabilized. Last ejection fraction noted to be 15%. Anticipated discharge with LifeVest and to be evaluated ICD. (2) Acute renal failure Current Visit: Yes Status: Acute Qualifiers: Acute renal failure type: unspecified Qualified Code(s): N17.9 - Acute kidney failure, unspecified Plan to address problem: Acute renal failure on chronic kidney disease stage III. Stable considering diuretics and milrinone. No new changes at this time. Renal following. (3) Atrial fibrillation with RVR Current Visit: Yes Status: Acute Plan to address problem: At present has optimal control of rate heart rate. Continue present medical management beta-keith AV justyn blocking agent. Anticoagulation. rate controlled (4) Suspected 2019 novel coronavirus infection Current Visit: Yes Status: Acute Plan to address problem: Ruled out for COVID-19 infection. Subjective Date of service: 12/26/19 Principal diagnosis: Acute decompensated congestive heart failure. Interval history: Patient appears improved today. Less work of breathing. Diuresing well. Saturations are improved. Clinically patient facies feels stronger. Patient improving we will were known. Awaiting LifeVest. No new changes patient in bed resting comfortabl Objective - Constitutional Vitals: Vital Signs - 12hr 12/26/19 12/26/19 12/26/19 04:52 08:00 08:04 Temperature 97.9 F Pulse Rate 78 101 H Pulse Rate [ 17 L Right Radial] Respiratory 20 19 Rate Blood Pressure 124/67 122/59 O2 Sat by Pulse 98 97 98 Oximetry 12/26/19 12/26/19 12/26/19 09:09 09:10 10:00 Temperature Pulse Rate 101 H 101 H 81 Pulse Rate [ Right Radial] Respiratory Rate Blood Pressure 122/59 122/59 O2 Sat by Pulse Oximetry 12/26/19 11:43 Temperature 98.6 F Pulse Rate 79 Pulse Rate [ Right Radial] Respiratory 20 Rate Blood Pressure 106/68 O2 Sat by Pulse 98 Oximetry General appearance: Present: no acute distress, well-nourished - EENT Eyes: PERRL, EOM intact ENT: hearing intact, clear oral mucosa Ears: bilateral: normal - Neck Neck: supple, normal ROM - Respiratory Respiratory effort: normal Respiratory: bilateral: CTA, negative: rhonchi (Few rhonchi) - Breasts Breasts: normal - Cardiovascular Rhythm: regular Heart Sounds: Present: S1 & S2. Absent: gallop, rub Extremities: pulses intact, No edema, normal color, Full ROM - Gastrointestinal General gastrointestinal: Present: soft, non-tender, non-distended, normal bowel sounds - Genitourinary Female genitourinary: normal - Integumentary Integumentary: clear, warm, dry - Musculoskeletal Musculoskeletal: strength equal bilaterally, other (Lower extremity edema.) - Neurologic Neurologic: moves all extremities - Psychiatric Psychiatric: memory intact, appropriate mood/affect, intact judgment & insight - Labs CBC & Chem 7: 12/23/19 03:39 12/25/19 03:42 Labs: Abnormal lab results 12/25/19 Range/Units 22:32 POC Glucose 133 H (70-105) HEART Score - HEART Score Troponin: Troponin T 0.017 ng/mL (0.00-0.029) 12/19/19 03:48
[2019-12-26] MEDS: ACETAMINOPHEN 325 MG TAB PO PRN ×2 (20:25→23:47)
[2019-12-26] MEDS: MILRINONE-D5W 20 MG/100 ML 20 MG/100 ML BAG IV SCH (21:15)
[2019-12-27] MEDS: FUROSEMIDE 40 MG/4 ML INJ IV SCH ×2 (05:23→19:08)
[2019-12-27 06:28] LABS: Calcium 9.2 mg/dL (8.4-10.2)
[2019-12-27] MEDS ORDERED: POTASSIUM CHLORIDE ER 20 MEQ TAB PO ONE (08:00)
[2019-12-27] MEDS ORDERED: SODIUM CHLORIDE 0.9% 500 ML 500 ML IV SCH (08:00)
[2019-12-27] MEDS: POTASSIUM CHLORIDE 10 MEQ 10 MEQ/100 ML BAG IV SCH ×2 (08:43→09:47)
[2019-12-27] MEDS: metOLazone 5 MG TAB PO SCH (08:59)
[2019-12-27] MEDS: APIXABAN 5 MG TAB PO SCH ×2 (08:59→21:33)
[2019-12-27] MEDS: ASPIRIN 81 MG TAB CHEW PO SCH (09:00)
[2019-12-27] MEDS: SPIRONOLACTONE 25 MG TAB PO SCH (09:00)
[2019-12-27] MEDS: PANTOPRAZOLE 20 MG TAB PO SCH (09:00)
[2019-12-27] MEDS: AMIODARONE 200 MG TAB PO SCH ×2 (09:00→21:33)
[2019-12-27] MEDS: METOPROLOL TARTRATE 25 MG TAB PO SCH (09:01)
--- NOTE | 2019-12-27 10:56 | Progress Note ---
Assessment and Plan Congestive heart failure, acute on chronic Chronic atrial fibrillation on rate control strategy oral anticoagulation with Eliquis. Hx of dilated cardiomyopathy followed by Aurelio left ventricular ejection fraction 10-15% by echo this admission Renal failure Recommendations: Advised sodium/fluid restriction. Continue aggressive medical therapy for chronic systolic left ventricular failure. Continue IV milrinone as patient is still volume overloaded Continue IV lasix and metolazone. Replace potassium chloride Eliquis for oral anticoagulation. May require home inotropic support We will arrange for a Lifevest to be placed as bridge therapy to eventual ICD upon discharge. Subjective Date of service: 12/27/19 Principal diagnosis: Acute decompensated congestive heart failure. Interval history: Patient continues to be volume overloaded on exam Objective Vital Signs Temp Pulse Pulse Resp BP Pulse Ox 12/27/19 09:02 86 102/51 92 12/27/19 09:01 78 110/51 12/27/19 09:00 78 110/51 12/27/19 08:00 98.7 F 95 H 88 20 100/56 99 12/27/19 04:58 97.4 F L 81 20 91/54 99 12/26/19 23:40 68 18 94/52 96 12/26/19 22:00 90 12/26/19 20:30 97.6 F 75 20 112/48 94 12/26/19 20:00 20 L 18 95 12/26/19 17:15 98 H 104/54 96 12/26/19 16:06 100/54 12/26/19 16:04 98.7 F 87 93/53 96 12/26/19 11:43 98.6 F 79 20 106/68 98 - Physical Examination General: No Apparent Distress, Other (obese) HEENT: Positive: PERRL Neck: Positive: trachea midline Cardiac: Positive: irregularly irregular Neuro: Positive: Grossly Intact Abdomen: Positive: Soft Skin: Positive: Clear Extremities: Present: +2 Edema - Labs and Meds Comprehensive Metabolic Panel 12/27/19 Range/Units 05:01 Sodium 137 (137-145) mmol/L Potassium 2.9 L* (3.6-5.0) mmol/L Chloride 89.3 L (98-107) mmol/L Carbon Dioxide 35 H (22-30) mmol/L BUN 29 H (7-17) mg/dL Creatinine 1.5 H (0.7-1.2) mg/dL Glucose 149 H (65-100) mg/dL Calcium 9.2 (8.4-10.2) mg/dL
--- NOTE | 2019-12-27 10:59 | Progress Note ---
Assessment and Plan 1. Acute kidney injury: Vasomotor QAMAR superimposed on CKD stage 3 in the setting hypotension and decompensated CHF. UA bland. Renal US negative for hydro. Creatinine level is improving. Monitor renal function. Avoid nephrotoxic agents. Meds dosage based on GFR. 2. FEN: Hypokalemia, replete K as needed, monitor. Volume overload, on Lasix and Metolazone. Monitor lytes and volume status. 3. Acute on chronic combined systolic and diastolic CHF: Milrinone drip. Followed by Cards. Advsied to limit fluid intake. I don't think pt is compliant with fluid intake. 4. Suspected COVID-19: Test negative. 5. Chronic Atrial fib with RVR: On Eliquis, Toprol-XL, Digoxin and Amiodarone. Followed by Cardiology. 6. Elevated LFTs: Monitor. 7. Obstructive sleep apnea: CPAP at bedtime. - Subjective: Patient was seen and examined at the bedside. No new complaint. - General Appearance General appearance: well-developed, well-nourished, appears stated age, obese, no distress HEENT: ATNC, MANJIT, mucous membranes moist, hearing intact, vision intact Neck: neck supple, trachea midline Respiratory: ctab Heart: S1S2, no murmur Gastrointestinal: normoactive bowel sounds, obese, not tender Integumentary: no rash, warm and dry Neurologic: no focal deficit, no asterixis, alert and oriented x3 Ext: 2+ LE edema noted Subjective Date of service: 12/27/19 Principal diagnosis: Acute decompensated congestive heart failure. Objective - Vital Signs Vital signs: Vital Signs - 12hr 12/26/19 12/27/19 12/27/19 23:40 04:58 08:00 Temperature 97.4 F L 98.7 F Pulse Rate 68 81 95 H Pulse Rate [ 88 Right Radial] Respiratory 18 20 20 Rate Blood Pressure 94/52 91/54 100/56 O2 Sat by Pulse 96 99 99 Oximetry 12/27/19 12/27/19 12/27/19 09:00 09:01 09:02 Temperature Pulse Rate 78 78 86 Pulse Rate [ Right Radial] Respiratory Rate Blood Pressure 110/51 110/51 102/51 O2 Sat by Pulse 92 Oximetry - Lab 12/23/19 03:39 12/27/19 14:33 Most recent lab results Calcium 9.2 mg/dL (8.4-10.2) 12/27/19 05:01 Magnesium 2.30 mg/dL (1.7-2.3) 12/20/19 12:50 Urine Creatinine 106.1 mg/dL (0.1-20.0) H 12/21/19 Unknown Urine Sodium 10 mmol/L 12/21/19 Unknown Medications & Allergies - Medications Allergies/Adverse Reactions: Allergies No Known Allergies Allergy (Unverified 12/19/19 03:45) Home Medications: Home Medications Medication Instructions Recorded Confirmed Last Taken Type AtorvaSTATin 40 mg PO DAILY 12/19/19 12/19/19 Unknown History Eliquis 5 mg PO BID 12/19/19 12/19/19 Unknown History Esomeprazole Magnesium 20 mg PO QAM 12/19/19 12/19/19 Unknown History Furosemide 80 mg PO BID 12/19/19 12/19/19 Unknown History Potassium 20 meq PO DAILY 12/19/19 12/19/19 Unknown History Active Medications: Generic Name Dose Route Start Last Admin Trade Name Freq PRN Reason Stop Dose Admin Acetaminophen 650 mg 12/19/19 15:51 12/26/19 23:47 Tylenol PO 650 mg Q4H PRN Administration Pain MILD(1-3)/Fever >100.5/LÓPEZ Amiodarone HCl 200 mg 12/19/19 22:00 12/27/19 09:00 Cordarone PO 200 mg BID LIZETH Administration Apixaban 5 mg 12/19/19 22:00 12/27/19 08:59 Eliquis PO 5 mg Q12HR LIZETH Administration Aspirin 81 mg 12/20/19 10:00 12/27/19 09:00 Baby Aspirin PO 81 mg QDAY LIZETH Administration Digoxin 0.125 mg 12/25/19 17:00 12/25/19 18:24 Lanoxin PO 0.125 mg Q48H LIZETH Administration Furosemide 40 mg 12/20/19 21:09 12/27/19 05:23 Lasix IV Not Given 0600,1800 LIZETH Milrinone Lactate/Dextrose 20 mg in 100 mls @ 14.288 mls/hr 12/22/19 17:00 12/26/19 21:15 Milrinone-D5w 20 Mg/100 Ml IV 0.1 mcg/kg/min TITR LIZETH 3.81 mls/hr Administration Protocol 0.375 MCG/KG/MIN Sodium Chloride 500 mls @ 50 mls/hr 12/27/19 08:00 Nacl 0.9% 500 Ml IV DIRECT LIZETH Metoclopramide HCl 10 mg 12/21/19 14:26 12/21/19 14:58 Reglan PO 10 mg Q6H PRN Administration Nausea And Vomiting Metolazone 5 mg 12/24/19 11:00 12/27/19 08:59 Zaroxolyn PO 5 mg QDAY LIZETH Administration Metoprolol Succinate 50 mg 12/28/19 10:00 Metoprolol Xl PO QDAY LIZETH Metoprolol Tartrate 2.5 mg 12/23/19 11:30 Metoprolol IV Q4HR PRN HR >130 Ondansetron HCl 4 mg 12/20/19 21:09 12/21/19 10:54 Zofran IV 4 mg Q8H PRN Administration N/V unrelieved by Reglan Pantoprazole Sodium 20 mg 12/20/19 10:00 12/27/19 09:00 Protonix PO 20 mg QDAY LIZETH Administration Spironolactone 25 mg 12/24/19 11:00 12/27/19 09:00 Aldactone PO 25 mg QDAY LIZETH Administration
[2019-12-27] MEDS: POTASSIUM CHLORIDE ER 20 MEQ TAB PO SCH ×2 (11:31→17:15)
--- NOTE | 2019-12-27 15:25 | Progress Note ---
Assessment and Plan - Patient Problems (1) Acute on chronic systolic heart failure Current Visit: Yes Status: Acute Plan to address problem: Acute on chronic systolic heart failure. Patient on milrinone. Beta-keith therapy diuretics. Doing well. May be to change patient to p.o. diuretics a.m. Appears to be stabilized. Last ejection fraction noted to be 15%. Anticipated discharge with LifeVest and to be evaluated ICD. Continues to improve LifeVest or ICD (2) Acute renal failure Current Visit: Yes Status: Acute Qualifiers: Acute renal failure type: unspecified Qualified Code(s): N17.9 - Acute kidney failure, unspecified Plan to address problem: Acute renal failure on chronic kidney disease stage III. Stable considering diuretics and milrinone. No new changes at this time. Renal following. (3) Atrial fibrillation with RVR Current Visit: Yes Status: Acute Plan to address problem: At present has optimal control of rate heart rate. Continue present medical management beta-keith AV justyn blocking agent. Anticoagulation. rate controlled (4) Suspected 2019 novel coronavirus infection Current Visit: Yes Status: Acute Plan to address problem: Ruled out for COVID-19 infection. Subjective Date of service: 12/27/19 Principal diagnosis: Acute decompensated congestive heart failure. Interval history: Patient continues to slowly improve consistent with severe dilated cardiomyopathy Objective - Constitutional Vitals: Vital Signs - 12hr 12/27/19 12/27/19 12/27/19 04:58 08:00 09:00 Temperature 97.4 F L 98.7 F Pulse Rate 81 85 78 Pulse Rate [ 88 Right Radial] Respiratory 20 20 Rate Blood Pressure 91/54 100/56 110/51 O2 Sat by Pulse 99 99 Oximetry 12/27/19 12/27/19 12/27/19 09:01 09:02 11:55 Temperature Pulse Rate 78 86 81 Pulse Rate [ Right Radial] Respiratory Rate Blood Pressure 110/51 102/51 106/60 O2 Sat by Pulse 92 95 Oximetry General appearance: Present: no acute distress, well-nourished - EENT Eyes: PERRL, EOM intact ENT: hearing intact, clear oral mucosa Ears: bilateral: normal - Neck Neck: supple, normal ROM - Respiratory Respiratory effort: normal Respiratory: bilateral: CTA, rhonchi - Breasts Breasts: normal - Cardiovascular Rhythm: regular Heart Sounds: Present: S1 & S2. Absent: gallop, rub Extremities: pulses intact, No edema, normal color, Full ROM Extremity abnormal: edema, other (Edematous) - Gastrointestinal General gastrointestinal: Present: soft, non-tender, non-distended, normal bowel sounds, other (Ascites improving) - Genitourinary Female genitourinary: normal - Integumentary Integumentary: clear, warm, dry - Musculoskeletal Musculoskeletal: 1, strength equal bilaterally - Neurologic Neurologic: moves all extremities - Psychiatric Psychiatric: memory intact, appropriate mood/affect, intact judgment & insight - Labs CBC & Chem 7: 12/23/19 03:39 12/27/19 14:33 Labs: Abnormal lab results 12/27/19 Range/Units 05:01 Potassium 2.9 L* (3.6-5.0) mmol/L Chloride 89.3 L (98-107) mmol/L Carbon Dioxide 35 H (22-30) mmol/L BUN 29 H (7-17) mg/dL Creatinine 1.5 H (0.7-1.2) mg/dL Glucose 149 H (65-100) mg/dL HEART Score - HEART Score Troponin: Troponin T 0.017 ng/mL (0.00-0.029) 12/19/19 03:48
[2019-12-27] MEDS: DIGOXIN 0.125 MG TAB PO SCH (17:15)
[2019-12-28] MEDS: MILRINONE-D5W 20 MG/100 ML 20 MG/100 ML BAG IV SCH (04:14)
[2019-12-28] MEDS: FUROSEMIDE 40 MG/4 ML INJ IV SCH ×2 (06:39→17:36)
[2019-12-28 06:48] LABS: Calcium 9.4 mg/dL (8.4-10.2)
[2019-12-28] MEDS: APIXABAN 5 MG TAB PO SCH ×2 (09:00→21:21)
[2019-12-28] MEDS: AMIODARONE 200 MG TAB PO SCH ×2 (09:00→21:21)
[2019-12-28] MEDS: ASPIRIN 81 MG TAB CHEW PO SCH (09:00)
[2019-12-28] MEDS: metOLazone 5 MG TAB PO SCH (09:00)
[2019-12-28] MEDS: PANTOPRAZOLE 20 MG TAB PO SCH (09:00)
[2019-12-28] MEDS: METOPROLOL SUCCINATE XL 50 MG TAB PO SCH (09:00)
[2019-12-28] MEDS: SPIRONOLACTONE 25 MG TAB PO SCH (09:01)
--- NOTE | 2019-12-28 10:59 | Progress Note ---
Assessment and Plan 1. Acute kidney injury: Vasomotor QAMAR superimposed on CKD stage 3 in the setting hypotension and decompensated CHF. UA bland. Renal US negative for hydro. Creatinine level is improving. Monitor renal function. Avoid nephrotoxic agents. Meds dosage based on GFR. 2. FEN: Hypokalemia, improved, replete K as needed, monitor. Volume overload, on Lasix and Metolazone. Metabolic alkalosis, add Diamox. Monitor lytes and volume status. 3. Acute on chronic combined systolic and diastolic CHF: Milrinone drip. Followed by Cards. Advised to limit fluid intake. 4. Suspected COVID-19: Test negative. 5. Chronic Atrial fib with RVR: On Eliquis, Toprol-XL, Digoxin and Amiodarone. Followed by Cardiology. 6. Elevated LFTs: Monitor. 7. Obstructive sleep apnea: CPAP at bedtime. - Subjective: Patient was seen and examined at the bedside. No new complaint. - General Appearance General appearance: well-developed, well-nourished, appears stated age, obese, no distress HEENT: ATNC, MANJIT, mucous membranes moist, hearing intact, vision intact Neck: neck supple, trachea midline Respiratory: ctab Heart: S1S2, no murmur Gastrointestinal: normoactive bowel sounds, obese, not tender Integumentary: no rash, warm and dry Neurologic: no focal deficit, no asterixis, alert and oriented x3 Ext: 2+ LE edema noted Subjective Date of service: 12/28/19 Principal diagnosis: Acute decompensated congestive heart failure. Objective - Vital Signs Vital signs: Vital Signs - 12hr 12/27/19 12/28/19 12/28/19 23:30 00:03 04:56 Temperature 98.0 F 97.6 F Pulse Rate 101 H 107 H 103 H Pulse Rate [ Right Radial] Respiratory 18 20 20 Rate Blood Pressure 103/61 105/66 O2 Sat by Pulse 97 98 98 Oximetry 12/28/19 12/28/19 12/28/19 08:23 08:39 09:00 Temperature 97.7 F Pulse Rate 108 H 71 Pulse Rate [ 76 Right Radial] Respiratory 17 20 Rate Blood Pressure 102/50 108/72 O2 Sat by Pulse 97 93 Oximetry 12/28/19 12/28/19 12/28/19 09:01 09:20 10:00 Temperature Pulse Rate 71 106 H Pulse Rate [ Right Radial] Respiratory Rate Blood Pressure 108/72 O2 Sat by Pulse 100 Oximetry - Lab 12/23/19 03:39 12/28/19 04:41 Most recent lab results Calcium 9.4 mg/dL (8.4-10.2) 12/28/19 04:41 Magnesium 2.20 mg/dL (1.7-2.3) 12/28/19 04:41 Urine Creatinine 106.1 mg/dL (0.1-20.0) H 12/21/19 Unknown Urine Sodium 10 mmol/L 12/21/19 Unknown Medications & Allergies - Medications Allergies/Adverse Reactions: Allergies No Known Allergies Allergy (Unverified 12/19/19 03:45) Home Medications: Home Medications Medication Instructions Recorded Confirmed Last Taken Type AtorvaSTATin 40 mg PO DAILY 12/19/19 12/19/19 Unknown History Eliquis 5 mg PO BID 12/19/19 12/19/19 Unknown History Esomeprazole Magnesium 20 mg PO QAM 12/19/19 12/19/19 Unknown History Furosemide 80 mg PO BID 12/19/19 12/19/19 Unknown History Potassium 20 meq PO DAILY 12/19/19 12/19/19 Unknown History Active Medications: Generic Name Dose Route Start Last Admin Trade Name Freq PRN Reason Stop Dose Admin Acetaminophen 650 mg 12/19/19 15:51 12/26/19 23:47 Tylenol PO 650 mg Q4H PRN Administration Pain MILD(1-3)/Fever >100.5/LÓPEZ Amiodarone HCl 200 mg 12/19/19 22:00 12/28/19 09:00 Cordarone PO 200 mg BID LIZETH Administration Apixaban 5 mg 12/19/19 22:00 12/28/19 09:00 Eliquis PO 5 mg Q12HR LIZETH Administration Aspirin 81 mg 12/20/19 10:00 12/28/19 09:00 Baby Aspirin PO 81 mg QDAY LIZETH Administration Digoxin 0.125 mg 12/25/19 17:00 12/27/19 17:15 Lanoxin PO 0.125 mg Q48H LIZETH Administration Furosemide 40 mg 12/20/19 21:09 12/28/19 06:39 Lasix IV 40 mg 0600,1800 LIZETH Administration Milrinone Lactate/Dextrose 20 mg in 100 mls @ 14.288 mls/hr 12/22/19 17:00 12/28/19 04:14 Milrinone-D5w 20 Mg/100 Ml IV 0.1 mcg/kg/min TITR LIZETH 3.81 mls/hr Administration Protocol 0.375 MCG/KG/MIN Sodium Chloride 500 mls @ 50 mls/hr 12/27/19 08:00 Nacl 0.9% 500 Ml IV DIRECT LIZETH Metoclopramide HCl 10 mg 12/21/19 14:26 12/21/19 14:58 Reglan PO 10 mg Q6H PRN Administration Nausea And Vomiting Metolazone 5 mg 12/24/19 11:00 12/28/19 09:00 Zaroxolyn PO 5 mg QDAY LIZETH Administration Metoprolol Succinate 50 mg 12/28/19 10:00 12/28/19 09:00 Metoprolol Xl PO 50 mg QDAY LIZETH Administration Metoprolol Tartrate 2.5 mg 12/23/19 11:30 Metoprolol IV Q4HR PRN HR >130 Ondansetron HCl 4 mg 12/20/19 21:09 12/21/19 10:54 Zofran IV 4 mg Q8H PRN Administration N/V unrelieved by Regjeremy Pantoprazole Sodium 20 mg 12/20/19 10:00 12/28/19 09:00 Protonix PO 20 mg QDAY LIZETH Administration Spironolactone 25 mg 12/24/19 11:00 12/28/19 09:01 Aldactone PO 25 mg QDAY LIZETH Administration
--- NOTE | 2019-12-28 11:42 | Progress Note ---
Assessment and Plan Congestive heart failure, acute on chronic Chronic atrial fibrillation on rate control strategy oral anticoagulation with Eliquis. Hx of dilated cardiomyopathy followed by Aurelio left ventricular ejection fraction 10-15% by echo this admission Renal failure Recommendations: Advised sodium/fluid restriction. Continue medical therapy for chronic systolic left ventricular failure. Eliquis for oral anticoagulation. We will arrange for a Lifevest to be placed as bridge therapy to eventual ICD. Subjective Date of service: 12/28/19 Principal diagnosis: Acute decompensated congestive heart failure. Interval history: IV milrinone continues. Admits she is diuresing well. Awaits lifevest to be placed. Afib with a well controlled ventricular rate on tele. Objective Vital Signs Temp Pulse Pulse Resp BP Pulse Ox 12/28/19 10:00 106 H 12/28/19 09:20 100 12/28/19 09:01 71 108/72 12/28/19 09:00 71 108/72 12/28/19 08:39 97.7 F 108 H 20 102/50 93 12/28/19 08:23 76 17 97 12/28/19 04:56 97.6 F 103 H 20 105/66 98 12/28/19 00:03 98.0 F 107 H 20 103/61 98 12/27/19 23:30 101 H 18 97 12/27/19 21:34 98.9 F 111 H 20 102/67 96 12/27/19 21:00 95 12/27/19 20:09 104 H 12/27/19 17:15 98 H 98/57 97 12/27/19 16:25 98.2 F 90 20 102/67 98 12/27/19 11:55 81 106/60 95 - Physical Examination General: No Apparent Distress, Other (obese) HEENT: Positive: PERRL Neck: Positive: trachea midline Cardiac: Positive: irregularly irregular Lungs: Positive: Decreased Breath Sounds Neuro: Positive: Grossly Intact Extremities: Present: +1 Edema - Labs and Meds Comprehensive Metabolic Panel 12/27/19 12/28/19 Range/Units 14:33 04:41 Sodium 138 (137-145) mmol/L Potassium 4.0 D 4.0 (3.6-5.0) mmol/L Chloride 90.8 L (98-107) mmol/L Carbon Dioxide 34 H (22-30) mmol/L BUN 27 H (7-17) mg/dL Creatinine 1.2 (0.7-1.2) mg/dL Glucose 98 (65-100) mg/dL Calcium 9.4 (8.4-10.2) mg/dL
[2019-12-28] MEDS: acetaZOLAMIDE 250 MG TAB PO SCH ×2 (12:35→21:21)
--- NOTE | 2019-12-28 17:39 | Progress Note ---
Assessment and Plan - Patient Problems (1) Acute on chronic systolic heart failure Current Visit: Yes Status: Acute Plan to address problem: Acute on chronic systolic heart failure. Patient on milrinone. Beta-keith therapy diuretics. Doing well. May be to change patient to p.o. diuretics a.m. Appears to be stabilized. Last ejection fraction noted to be 15%. Anticipated discharge with LifeVest and to be evaluated ICD. Continues to improve LifeVest or ICD continues to improve awaiting LifeVest. (2) Acute renal failure Current Visit: Yes Status: Acute Qualifiers: Acute renal failure type: unspecified Qualified Code(s): N17.9 - Acute kidney failure, unspecified Plan to address problem: Acute renal failure on chronic kidney disease stage III. Stable considering diuretics and milrinone. No new changes at this time. Renal following. (3) Atrial fibrillation with RVR Current Visit: Yes Status: Acute Plan to address problem: At present has optimal control of rate heart rate. Continue present medical management beta-keith AV justyn blocking agent. Anticoagulation. rate controlled (4) Suspected 2019 novel coronavirus infection Current Visit: Yes Status: Acute Plan to address problem: Ruled out for COVID-19 infection. Subjective Date of service: 12/28/19 Principal diagnosis: Acute decompensated congestive heart failure. Interval history: Continues to improve clinically. Diuresing well. Less shortness of breath left lower extremity edema. Awaiting LifeVest. Objective - Constitutional Vitals: Vital Signs - 12hr 12/28/19 12/28/19 12/28/19 08:23 08:39 09:00 Temperature 97.7 F Pulse Rate 108 H 71 Pulse Rate [ 76 Right Radial] Respiratory 17 20 Rate Blood Pressure 102/50 108/72 O2 Sat by Pulse 97 93 Oximetry 12/28/19 12/28/19 12/28/19 09:01 09:20 10:00 Temperature Pulse Rate 71 106 H Pulse Rate [ Right Radial] Respiratory Rate Blood Pressure 108/72 O2 Sat by Pulse 100 Oximetry 12/28/19 12/28/19 12:29 16:33 Temperature 98.1 F 98.0 F Pulse Rate 92 H 90 Pulse Rate [ Right Radial] Respiratory 18 20 Rate Blood Pressure 112/64 98/56 O2 Sat by Pulse 97 98 Oximetry General appearance: Present: no acute distress, well-nourished - EENT Eyes: PERRL, EOM intact ENT: hearing intact, clear oral mucosa Ears: bilateral: normal - Neck Neck: supple, normal ROM - Respiratory Respiratory effort: normal Respiratory: bilateral: CTA, rhonchi (Few) - Breasts Breasts: normal - Cardiovascular Rhythm: regular Heart Sounds: Present: S1 & S2. Absent: gallop, rub Extremities: pulses intact, normal color, Full ROM Extremity abnormal: edema, other (Improving edema) - Gastrointestinal General gastrointestinal: Present: soft, non-tender, non-distended, normal bowel sounds - Genitourinary Female genitourinary: normal - Integumentary Integumentary: clear, warm, dry - Musculoskeletal Musculoskeletal: 1, strength equal bilaterally - Neurologic Neurologic: moves all extremities - Psychiatric Psychiatric: memory intact, appropriate mood/affect, intact judgment & insight - Labs CBC & Chem 7: 12/23/19 03:39 12/28/19 04:41 Labs: Abnormal lab results 12/28/19 Range/Units 04:41 Chloride 90.8 L (98-107) mmol/L Carbon Dioxide 34 H (22-30) mmol/L BUN 27 H (7-17) mg/dL HEART Score - HEART Score Troponin: Troponin T 0.017 ng/mL (0.00-0.029) 12/19/19 03:48
[2019-12-29] MEDS: FUROSEMIDE 40 MG/4 ML INJ IV SCH (06:12)
[2019-12-29] MEDS: MILRINONE-D5W 20 MG/100 ML 20 MG/100 ML BAG IV SCH (06:12)
[2019-12-29 06:47] LABS: Albumin 3.2 g/dL (3.9-5); Calcium 9.6 mg/dL (8.4-10.2)
[2019-12-29] MEDS: SPIRONOLACTONE 25 MG TAB PO SCH (09:55)
[2019-12-29] MEDS: ASPIRIN 81 MG TAB CHEW PO SCH (09:55)
[2019-12-29] MEDS: APIXABAN 5 MG TAB PO SCH (09:56)
[2019-12-29] MEDS: AMIODARONE 200 MG TAB PO SCH (09:56)
[2019-12-29] MEDS: metOLazone 5 MG TAB PO SCH (09:56)
[2019-12-29] MEDS: acetaZOLAMIDE 250 MG TAB PO SCH (09:56)
[2019-12-29] MEDS: METOPROLOL SUCCINATE XL 50 MG TAB PO SCH (09:56)
[2019-12-29] MEDS: PANTOPRAZOLE 20 MG TAB PO SCH (09:56)
--- NOTE | 2019-12-29 10:14 | Progress Note ---
Assessment and Plan Congestive heart failure, acute on chronic Chronic atrial fibrillation on rate control strategy oral anticoagulation with Eliquis. Hx of dilated cardiomyopathy followed by Aurelio left ventricular ejection fraction 10-15% by echo this admission Renal failure Recommendations: Advised sodium/fluid restriction. Continue medical therapy for chronic systolic left ventricular failure. Eliquis for oral anticoagulation. Lifevest placed as bridge therapy to eventual ICD. 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 Subjective Date of service: 12/29/19 Principal diagnosis: Acute decompensated congestive heart failure. Interval history: Patient reports she is feeling much better. Lifevest has been delivered. Objective Vital Signs Temp Pulse Pulse Resp BP Pulse Ox 12/29/19 09:56 65 110/54 12/29/19 09:55 65 110/54 12/29/19 08:18 91 H 18 98 12/29/19 08:12 98.3 F 72 20 122/84 92 12/29/19 08:09 99.0 F 91 H 20 115/63 94 12/29/19 04:16 98.1 F 108 H 22 109/44 90 12/28/19 23:13 98.5 F 86 20 128/60 94 12/28/19 22:13 93 H 18 90 12/28/19 20:24 92 12/28/19 19:07 98 H 12/28/19 17:37 88 108/54 97 12/28/19 16:33 98.0 F 90 20 98/56 98 12/28/19 12:29 98.1 F 92 H 18 112/64 97 - Physical Examination General: No Apparent Distress, Other (obese) HEENT: Positive: PERRL Neck: Positive: trachea midline Cardiac: Positive: irregularly irregular Lungs: Positive: Decreased Breath Sounds Neuro: Positive: Grossly Intact Extremities: Present: +1 Edema - Labs and Meds Cardiac Enzymes 12/29/19 Range/Units 04:43 AST 25 (5-40) units/L Comprehensive Metabolic Panel 12/29/19 Range/Units 04:43 Sodium 138 (137-145) mmol/L Potassium 3.0 L D (3.6-5.0) mmol/L Chloride 88.5 L (98-107) mmol/L Carbon Dioxide 38 H (22-30) mmol/L BUN 31 H (7-17) mg/dL Creatinine 1.2 (0.7-1.2) mg/dL Glucose 99 (65-100) mg/dL Calcium 9.6 (8.4-10.2) mg/dL AST 25 (5-40) units/L ALT 42 (7-56) units/L Alkaline Phosphatase 68 (35-129) units/L Total Protein 6.5 (6.3-8.2) g/dL Albumin 3.2 L (3.9-5) g/dL
[2019-12-29 12:51] VITALS: BP 112/67
[2019-12-29] MEDS ORDERED: POTASSIUM CHLORIDE ER 20 MEQ TAB PO ONE (14:00)
--- NOTE | 2019-12-29 14:04 | Discharge Summary ---
Providers - Providers Date of Admission: 12/19/19 06:14 Date of discharge: 12/29/19 Attending physician: PIPRE VELASQUEZ 12/19/19 15:06 Consult to Physician [CONS] Routine Comment: Consulting Provider: TUSHAR RODRIGUEZ Physician Instructions: Reason For Exam: CHF 12/21/19 09:43 Consult to Physician [CONS] Routine Comment: Consulting Provider: DAMI DESIR Physician Instructions: Reason For Exam: qamar [facility] Hospital[facility] Condition: Serious Pertinent studies: Renal ultrasound, chest x-ray, 2D echocardiogram Hospital course: This is a 69-year-old female with a history of congestive heart failure, COPD, coronary artery disease, hypertension and atrial fibrillation who presented to the emergency department via EMS from home with a complaint of a one-week history of progressively worsening shortness of breath and extensive lower extremity swelling. Patient was recently discharged from the [facility] about less than 2 weeks ago. the patient says that she has been doubling up on her Lasix and taking a total of 160 mg/day but still is having the leg edema and some orthopnea. In the ER her BMP showed potassium 3.1, creatinine 1.5, BNP 5175 and troponin 0 0.017. Patient has been placed on COVID-19 protocol, given one-time dose of Lasix and call for admission for further evaluation management. Daily course: 12/20/19: covid 19 test negative. patient still symptomatic with b/l LE edema. cont iv lasix, monitor daily wt/ins/os, follow vitals daily 12/21/19: Continue IV Lasix, follow creatinine, consulted renal for QAMAR. Monitor Daily weights/ins/os. cardiology planning to start milrinone drip when patient moves to telemetry floor 12/21: start on Milrinone drip today, discussed with Dr rodriguez, monitor bmp. ordered for repEAT 2D ECHO 12/22: patient is on intravenous milrinone, Left ventricular ejection fraction was estimated at <10% ON ECHO THIS ADMISSION. nEED a LifeVest on discharge as a bridge to eventual ICD implant. 12/23-12/27: Continued on milrinone drip, diuresed accordingly, medications optimized. Patient symptom improved significantly, renal function stabilized, then milrinone drip discontinued and monitored overnight. Ordered for LifeVest for discharge. 12/28: LifeVest delivered to the room, patient is vitally stable and cardiology cleared for discharge. Home health was offered but patient refused. Patient will follow-up at [place] in 1 week following discharge. Patient was discharged home in stable condition with LifeVest. Discharge diagnosis and mx: Acute on chronic combined systolic and diastolic CHF -EF 10-15% with grade 3 diastolic dysfunction on echo 10/2019 - monitored with serial CE and EKG - placed on Aspirin, statin, and IV diuresis - Consulted cardiology, s/p milrinone drip -Placed on cardiac diet , daily weights, monitor in's and O's - life vest placed before d/c, medication of optimized and cleared by cardiology for discharge Suspected COVID-19- negative test Atrial fib with RVR -Anticoagulation with Eliquis 5 mg p.o. twice daily -Continue rate control with Toprol-XL, digoxin Hypertension, continue home meds -Monitor vitals every 8 hour, adjust antihypertensive as needed Obstructive sleep apnea, CPAP at bedtime Hyperlipidemia, continue Lipitor 40 mg daily QAMAR on CKD stage 3, due to vasomotor nephropathy and cardiorenal syndrome - her baseline Cr 1.4 to 1.5 hypokalemia, repleted and normal Mg Morbid obesity, dietary recommendation provided DVT prophylaxis, on Eliquis Disposition: DC-01 TO HOME OR SELFCARE Time spent for discharge: 34 minutes Core Measure Documentation - Palliative Care Palliative Care/ Comfort Measures: Not Applicable - Core Measures Any of the following diagnoses?: heart failure - Heart Failure Discharge Requirements MOIRA/ARB for LVSD if EF <40%: Yes Beta keith at discharge: Yes Exam - Physical Exam Narrative exam: GENERAL: The patient is well-developed morbidly obese. HENT: Normocephalic. Atraumatic. Patient has moist mucous membranes. Positive JVD EYES: Extraocular motions are intact. NECK: Supple. Trachea is midline. CHEST/LUNGS: Coarse breath sounds throughout the chest. There is some tachypnea but no accessory muscle use. HEART/CARDIOVASCULAR: Irregular with moderate tachycardia. ABDOMEN: Abdomen is soft, nontender. Patient has normal bowel sounds. Obese habitus. SKIN: Skin is warm and dry. trace pitting edema to the bilateral lower extremities from the knees distally. NEURO: The patient is awake, alert, and oriented. The patient is cooperative. The patient has no focal neurologic deficits. Normal speech. MUSCULOSKELETAL: There is no tenderness or deformity. - Constitutional Vitals: Temp Pulse Resp BP Pulse Ox 98.1 F 66 20 112/67 96 12/29/19 12:00 12/29/19 12:00 12/29/19 12:00 12/29/19 12:00 12/29/19 12:00 Plan Activity: advance as tolerated Weight Bearing Status: Weight Bear as Tolerated Diet: low fat, low salt Special Instructions: restrict fluid intake to (1 L daily), record daily weights Additional Instructions: f/u at [place] in one week Follow up with: OCTAVIO DEANDETROIT MD TIM [Primary Care Provider] - 3-5 Days Prescriptions: Spironolactone [Aldactone] 25 mg PO QDAY #30 tablet Aspirin [Aspirin BABY CHEW TAB] 81 mg PO QDAY #30 tab.chew acetaZOLAMIDE [Diamox TAB] 250 mg PO BID #60 tablet Digoxin [Lanoxin] 0.125 mg PO Q48H #30 tablet Metoprolol Xl [Metoprolol SUCCINATE ER TAB] 50 mg PO QDAY #30 tablet metOLazone [Zaroxolyn] 5 mg PO QDAY #30 tablet
--- NOTE | 2019-12-29 14:06 | Progress Note ---
Assessment and Plan 1. Acute kidney injury: Vasomotor QAMAR superimposed on CKD stage 3 in the setting hypotension and decompensated CHF. UA bland. Renal US negative for hydro. Creatinine level is better. Monitor renal function. Avoid nephrotoxic agents. Meds dosage based on GFR. 2. FEN: Hypokalemia, replete K, monitor. Volume overload, on Lasix and Metolazone. Metabolic alkalosis, on Diamox. Monitor lytes and volume status. 3. Acute on chronic combined systolic and diastolic CHF: Milrinone drip. Followed by Cards. Advised to limit fluid intake. 4. Suspected COVID-19: Test negative. 5. Chronic Atrial fib with RVR: On Eliquis, Toprol-XL, Digoxin and Amiodarone. Followed by Cardiology. 6. Elevated LFTs: Monitor. 7. Obstructive sleep apnea: CPAP at bedtime. F/u in 1-2 weeks. - Subjective: Patient was seen and examined at the bedside. No new complaint. - General Appearance General appearance: well-developed, well-nourished, appears stated age, obese, no distress HEENT: ATNC, MANJIT, mucous membranes moist, hearing intact, vision intact Neck: neck supple, trachea midline Respiratory: ctab Heart: S1S2, no murmur Gastrointestinal: normoactive bowel sounds, obese, not tender Integumentary: no rash, warm and dry Neurologic: no focal deficit, no asterixis, alert and oriented x3 Ext: 2+ LE edema noted Subjective Date of service: 12/29/19 Principal diagnosis: Acute decompensated congestive heart failure. Objective - Vital Signs Vital signs: Vital Signs - 12hr 12/29/19 12/29/19 12/29/19 04:16 08:09 08:12 Temperature 98.1 F 99.0 F 98.3 F Pulse Rate 108 H 91 H 72 Pulse Rate [ Right Radial] Respiratory 22 20 20 Rate Blood Pressure 109/44 115/63 122/84 O2 Sat by Pulse 90 94 92 Oximetry 12/29/19 12/29/19 12/29/19 08:18 09:55 09:56 Temperature Pulse Rate 65 65 Pulse Rate [ 91 H Right Radial] Respiratory 18 Rate Blood Pressure 110/54 110/54 O2 Sat by Pulse 98 Oximetry 12/29/19 12/29/19 10:00 12:00 Temperature 98.1 F Pulse Rate 105 H 66 Pulse Rate [ Right Radial] Respiratory 20 Rate Blood Pressure 112/67 O2 Sat by Pulse 96 Oximetry - Lab 12/23/19 03:39 12/29/19 04:43 Most recent lab results Calcium 9.6 mg/dL (8.4-10.2) 12/29/19 04:43 Magnesium 2.20 mg/dL (1.7-2.3) 12/28/19 04:41 Urine Creatinine 106.1 mg/dL (0.1-20.0) H 12/21/19 Unknown Urine Sodium 10 mmol/L 12/21/19 Unknown Medications & Allergies - Medications Allergies/Adverse Reactions: Allergies No Known Allergies Allergy (Unverified 12/19/19 03:45) Home Medications: Home Medications Medication Instructions Recorded Confirmed Last Taken Type AtorvaSTATin 40 mg PO DAILY 12/19/19 12/19/19 Unknown History Eliquis 5 mg PO BID 12/19/19 12/19/19 Unknown History Esomeprazole Magnesium 20 mg PO QAM 12/19/19 12/19/19 Unknown History Furosemide 80 mg PO BID 12/19/19 12/19/19 Unknown History Potassium 20 meq PO DAILY 12/19/19 12/19/19 Unknown History Aspirin [Aspirin BABY CHEW TAB] 81 mg PO QDAY #30 tab.chew 12/29/19 Unknown Rx Digoxin [Lanoxin] 0.125 mg PO Q48H #30 tablet 12/29/19 Unknown Rx Metoprolol Xl [Metoprolol 50 mg PO QDAY #30 tablet 12/29/19 Unknown Rx SUCCINATE ER TAB] Spironolactone [Aldactone] 25 mg PO QDAY #30 tablet 12/29/19 Unknown Rx acetaZOLAMIDE [Diamox TAB] 250 mg PO BID #60 tablet 12/29/19 Unknown Rx metOLazone [Zaroxolyn] 5 mg PO QDAY #30 tablet 12/29/19 Unknown Rx Active Medications: Generic Name Dose Route Start Last Admin Trade Name Freq PRN Reason Stop Dose Admin Acetaminophen 650 mg 12/19/19 15:51 12/26/19 23:47 Tylenol PO 650 mg Q4H PRN Administration Pain MILD(1-3)/Fever >100.5/LÓPEZ Acetazolamide 250 mg 12/28/19 12:00 12/29/19 09:56 Diamox PO 250 mg BID LIZETH Administration Amiodarone HCl 200 mg 12/19/19 22:00 12/29/19 09:56 Cordarone PO 200 mg BID LIZETH Administration Apixaban 5 mg 12/19/19 22:00 12/29/19 09:56 Eliquis PO 5 mg Q12HR LIZETH Administration Aspirin 81 mg 12/20/19 10:00 12/29/19 09:55 Baby Aspirin PO 81 mg QDAY LIZETH Administration Digoxin 0.125 mg 12/25/19 17:00 12/27/19 17:15 Lanoxin PO 0.125 mg Q48H LIZETH Administration Furosemide 40 mg 12/20/19 21:09 12/29/19 06:12 Lasix IV 40 mg 0600,1800 LIZETH Administration Milrinone Lactate/Dextrose 20 mg in 100 mls @ 14.288 mls/hr 12/22/19 17:00 12/29/19 06:12 Milrinone-D5w 20 Mg/100 Ml IV 0.1 mcg/kg/min TITR LIZETH 3.81 mls/hr Administration Protocol 0.375 MCG/KG/MIN Sodium Chloride 500 mls @ 50 mls/hr 12/27/19 08:00 Nacl 0.9% 500 Ml IV DIRECT LIZETH Metoclopramide HCl 10 mg 12/21/19 14:26 12/21/19 14:58 Reglan PO 10 mg Q6H PRN Administration Nausea And Vomiting Metolazone 5 mg 12/24/19 11:00 12/29/19 09:56 Zaroxolyn PO 5 mg QDAY LIZETH Administration Metoprolol Succinate 50 mg 12/28/19 10:00 12/29/19 09:56 Metoprolol Xl PO 50 mg QDAY LIZETH Administration Metoprolol Tartrate 2.5 mg 12/23/19 11:30 Metoprolol IV Q4HR PRN HR >130 Ondansetron HCl 4 mg 12/20/19 21:09 12/21/19 10:54 Zofran IV 4 mg Q8H PRN Administration N/V unrelieved by Reglan Pantoprazole Sodium 20 mg 12/20/19 10:00 12/29/19 09:56 Protonix PO 20 mg QDAY LIZETH Administration Spironolactone 25 mg 12/24/19 11:00 12/29/19 09:55 Aldactone PO 25 mg QDAY LIZETH Administration
== END 2019-12-29 16:28 | disposition home or self-care (01) | DRG 291 ==
LOC: ED 03:11 → 3A 06:14 → 4A 12-22 12:46
PROVIDERS: ADMIT Internal Medicine Geriatric Medicine; ATTEND Internal Medicine
PROC: 5A09357 Assistance with Respiratory Ventilation, Less than 24 Consecutive Hours, Continuous Positive Airway Pressure (ICD-10-PCS; principal; 2019-12-23)
PROC: 5A09357 Assistance with Respiratory Ventilation, Less than 24 Consecutive Hours, Continuous Positive Airway Pressure (ICD-10-PCS; 2019-12-24)
PROC: 5A09357 Assistance with Respiratory Ventilation, Less than 24 Consecutive Hours, Continuous Positive Airway Pressure (ICD-10-PCS; 2019-12-27)
PROC: 5A09357 Assistance with Respiratory Ventilation, Less than 24 Consecutive Hours, Continuous Positive Airway Pressure (ICD-10-PCS; 2019-12-28)
DX: I13.0 Hypertensive heart and chronic kidney disease with heart failure and stage 1 through stage 4 chronic kidney disease, or unspecified chronic kidney disease (principal); I50.43 Acute on chronic combined systolic (congestive) and diastolic (congestive) heart failure; N17.0 Acute kidney failure with tubular necrosis; Z68.42 Body mass index [BMI] 45.0-49.9, adult; I42.0 Dilated cardiomyopathy; E87.6 Hypokalemia; I48.91 Unspecified atrial fibrillation; Z79.01 Long term (current) use of anticoagulants; R74.0 Nonspecific elevation of levels of transaminase and lactic acid dehydrogenase [LDH]; N18.3 Chronic kidney disease, stage 3 (moderate); Z20.828 Contact with and (suspected) exposure to other viral communicable diseases; G47.33 Obstructive sleep apnea (adult) (pediatric); E66.01 Morbid (severe) obesity due to excess calories; E78.5 Hyperlipidemia, unspecified; J44.9 Chronic obstructive pulmonary disease, unspecified; I25.10 Atherosclerotic heart disease of native coronary artery without angina pectoris; Z79.899 Other long term (current) drug therapy; Z98.51 Tubal ligation status; Z79.84 Long term (current) use of oral hypoglycemic drugs; Z99.89 Dependence on other enabling machines and devices; Z82.49 Family history of ischemic heart disease and other diseases of the circulatory system
CPT/HCPCS: 36415; 71045; 76770; 80048; 80053; 80162; 81001; 82570; 82728; 82947; 82962; 83615; 83735; 83880; 84132; 84145; 84300; 84484; 85025; 85379; 85610; 85730; 86140; 87641; 93005; 93306; 94760; 96374; 96375; G0378; A9270-GY; J1160; J1940; J2260; J2405; J3480; U0003-CS